=== PATIENT | female | born 1985 | race Caucasian/White ===

== ENCOUNTER 2021-01-16 15:48 | Outpatient (REF) | payer OTHER, SELFPAY ==
[2021-01-16 16:02] LABS: HCT 43.6 % (36.0-46.0); HGB 14.4 g/dL (11.2-15.7); MCH 28.7 pg (27.0-33.0); MCV 86.9 fL (80-95); MPV 10.4 fL (8.0-11.0); Platelet Count 384 10^3/uL (130-400); RBC 5.02 10^6/uL (3.93-5.22); RDW 12.1 % (11.7-14.6); RDW-SD 38.5 fL; WBC 14.75 10^3/uL (4.4-10.8)
[2021-01-16 23:45] LABS: BUN 12 mg/dL (7-18); CREATININE 0.8 mg/dL (0.55-1.02); Calcium 9.4 mg/dL (8.5-10.1); Calculated LDL 99 mg/dL (<100); Cholesterol 190 mg/dL (<200); Glucose 200 mg/dL (74-106); HDL Cholesterol 34 mg/dL (40-60); Total Protein 7.5 g/dL (6.4-8.2); Triglyceride 285 mg/dL (<150)
[2021-01-16 23:46] LABS: Albumin 4.3 g/dL (3.4-5.0); Alkaline Phosphatase 72 U/L (46-116); Anion Gap 14.7 mmol/L (3-11); Bilirubin, Total 0.4 mg/dL (0.2-1.0); CO2 24.3 mmol/L (21.0-32.0); Chloride 102 mmol/L (98-107); Sodium 141 mmol/L (136-145)
[2021-01-16 23:47] LABS: ALT 69 U/L (14-59); AST 41 U/L (15-37); TSH (W/Ref FT4) 1.66 uIU/mL (0.36-3.74)
== END 2021-01-16 15:49 | disposition home or self-care (01) ==
LOC: LBN 15:48
PROVIDERS: PCP Student in an Organized Health Care Education/Training Program; Visit Provider Student in an Organized Health Care Education/Training Program
DX: E11.9 Type 2 diabetes mellitus without complications (principal); I10 Essential (primary) hypertension; R53.83 Other fatigue; N92.0 Excessive and frequent menstruation with regular cycle; Z13.220 Encounter for screening for lipoid disorders; Z86.39 Personal history of other endocrine, nutritional and metabolic disease; Z80.8 Family history of malignant neoplasm of other organs or systems
CPT/HCPCS: 80053; 80061; 85027; 84443

== ENCOUNTER 2021-02-12 11:28 | Outpatient (REF) | payer OTHER, SELFPAY ==
[2021-02-12 11:36] LABS: Source Nasal/Nares
[2021-02-12 12:21] LABS: COVID-19 PCR Negative (Negative)
== END 2021-02-12 11:29 | disposition home or self-care (01) ==
LOC: LBN 11:28
PROVIDERS: PCP Student in an Organized Health Care Education/Training Program; Visit Provider Family Medicine
DX: Z11.52 Encounter for screening for COVID-19 (principal)
CPT/HCPCS: 87635

== ENCOUNTER 2021-02-22 12:17 | Outpatient (REF) | payer OTHER, SELFPAY ==
--- NOTE | 2021-02-22 11:30 | PAPFT_PTH ---
PATIENT: Isamar Peña LOC: [facility] U#:[id number] AGE/SX: 35/F ROOM: RE02/22/[address]: Radha Trevino DO : 1985 BED: DIS: 02/22/2021 SPEC #: [id number] RECD: 02/22/21 18:24 STATUS: EVERETTRoxanne RERonda #: [id number] LINDSEY: 02/22/21 11:[address]: Radha Trevino DEPT: [facility] Cytology RECD BY: Deyanira Sierra ENTERED: 02/22/21 18:25 SP TYPE: PAPFT OTHR DR: Amaya Turcios DO Tissues: 1 - CX/ENDOCX FOR PAP SMEARS Procedures: PAP THIN PREP/[facility] Screening HPV DNA PROBE Comments: [id number]
== END 2021-02-22 12:18 | disposition home or self-care (01) ==
LOC: LBN 12:17
PROVIDERS: PCP Student in an Organized Health Care Education/Training Program; Visit Provider Obstetrics & Gynecology
DX: Z12.4 Encounter for screening for malignant neoplasm of cervix (principal); Z11.51 Encounter for screening for human papillomavirus (HPV)
CPT/HCPCS: 88142; 87624

== ENCOUNTER 2021-02-28 03:06 | Outpatient (CLI) | payer OTHER, SELFPAY ==
[2021-03-05 16:49] LABS: 17-Hydroxyprogesterone <40 ng/dL
== END 2021-02-28 03:07 | disposition home or self-care (01) ==
LOC: LBO 03:06
PROVIDERS: PCP Student in an Organized Health Care Education/Training Program; Visit Provider Obstetrics & Gynecology
DX: E88.81 Metabolic syndrome and other insulin resistance (principal)
CPT/HCPCS: 36415; 83498

== ENCOUNTER → 2021-10-09 02:03 | Outpatient (CLI) | payer OTHER, SELFPAY ==
--- NOTE | 2021-10-09 07:30 | DI.RAD_ITS ---
Exam(s) XR SHOULDER RT COMPLETE 2+V EXAM: XR SHOULDER RT COMPLETE 2+V CLINICAL HISTORY: evaluate spacing, r/o bony path,RT SHOULDER PAIN, M25.511. TECHNIQUE: 2D digital imaging was performed of the right shoulder. Five images were obtained. AP, Grashey, Y-view and axillary views were obtained. COMPARISON: No exams were available for comparison FINDINGS: BONES: No acute fracture is present. No bony destructive lesion is seen. JOINTS: No dislocation present. SOFT TISSUE: Normal. IMPRESSION: Unremarkable radiographs of the right shoulder. DATA REPOSITORY: RADIATION DOSE DELIVERED:
== END ==
PROVIDERS: PCP Student in an Organized Health Care Education/Training Program; Visit Provider Student in an Organized Health Care Education/Training Program
DX: M25.511 Pain in right shoulder (principal)
CPT/HCPCS: 73030

== ENCOUNTER 2021-10-30 03:35 | Outpatient (CLI) | payer OTHER, SELFPAY ==
[2021-10-30 12:49] LABS: Abs Immature Grans 0.06 10^3/uL (0.0-0.06); Absolute Eosinophil Count 0.16 10^3/uL (0.0-0.7); Basophils % 0.3; Eosinophils % 1.1; HCT 42.1 % (36.0-46.0); HGB 13.8 g/dL (11.2-15.7); Immature Grans % 0.4; Lymphocytes % 34.2; MCH 28.5 pg (27.0-33.0); MCHC 32.8 % (32.0-36.0); MCV 87 fL (80-95); MPV 9.7 fL (8.0-11.0); Monocytes % 5.7; Neutrophils % 58.3; Platelet Count 401 10^3/uL (130-400); RBC 4.85 10^6/uL (3.93-5.22); RDW 12.5 % (11.7-14.6); RDW-SD 39.7 fL; WBC 14.46 10^3/uL (4.4-10.8)
[2021-10-30 12:51] LABS: Absolute Basophil Count 0.04 10^3/uL (0.0-0.2); Absolute Lymphocyte Count 4.95 10^3/uL (1.2-3.4); Absolute Monocyte Count 0.82 10^3/uL (0.1-0.8); Absolute Neutrophil Count 8.43 10^3/uL (1.2-6.7)
[2021-10-30 13:05] LABS: Hemoglobin A1C 7.6 % (<5.7)
== END 2021-10-30 03:36 | disposition home or self-care (01) ==
LOC: LBO 03:35
PROVIDERS: PCP Student in an Organized Health Care Education/Training Program; Visit Provider Student in an Organized Health Care Education/Training Program
DX: D72.829 Elevated white blood cell count, unspecified (principal); N92.0 Excessive and frequent menstruation with regular cycle; R73.09 Other abnormal glucose
CPT/HCPCS: 36415; 83036; 85025

== ENCOUNTER 2022-01-22 03:28 | Outpatient (CLI) | payer OTHER, SELFPAY ==
[2022-01-22 12:26] LABS: Abs Immature Grans 0.05 10^3/uL (0.0-0.06); Absolute Basophil Count 0.04 10^3/uL (0.0-0.2); Absolute Lymphocyte Count 4.04 10^3/uL (1.2-3.4); Basophils % 0.3; Eosinophils % 0.8; HCT 42.9 % (36.0-46.0); HGB 14.1 g/dL (11.2-15.7); Immature Grans % 0.4; Lymphocytes % 28.4; MCH 28.7 pg (27.0-33.0); MCHC 32.9 % (32.0-36.0); MCV 87 fL (80-95); MPV 9.9 fL (8.0-11.0); Monocytes % 5.6; Neutrophils % 64.5; Platelet Count 458 10^3/uL (130-400); RBC 4.92 10^6/uL (3.93-5.22); RDW 12.1 % (11.7-14.6); RDW-SD 38.9 fL; WBC 14.21 10^3/uL (4.4-10.8)
[2022-01-22 12:37] LABS: Absolute Eosinophil Count 0.11 10^3/uL (0.0-0.7); Absolute Neutrophil Count 9.17 10^3/uL (1.2-6.7)
[2022-01-22 12:47] LABS: ALT 59 U/L (14-59); AST 24 U/L (15-37); Albumin 4.3 g/dL (3.4-5.0); Alkaline Phosphatase 60 U/L (46-116); Anion Gap 7.8 mmol/L (3-11); BUN 9 mg/dL (7-18); Bilirubin, Total 0.3 mg/dL (0.2-1.0); CO2 27.2 mmol/L (21.0-32.0); CREATININE 0.8 mg/dL (0.55-1.02); Calcium 9.4 mg/dL (8.5-10.1); Calculated LDL 114 mg/dL (<100); Chloride 101 mmol/L (98-107); Cholesterol 177 mg/dL (<200); Estimated GFR 97.87 (mL/min/1.73m2); Glucose 103 mg/dL (74-106); HDL Cholesterol 34 mg/dL (40-60); Potassium 4.3 mmol/L (3.5-5.1); Sodium 136 mmol/L (136-145); TSH (W/Ref FT4) 1.42 uIU/mL (0.36-3.74); Total Protein 7.9 g/dL (6.4-8.2); Triglyceride 149 mg/dL (<150)
[2022-01-22 14:33] LABS: Hemoglobin A1C 6.4 % (<5.7)
== END 2022-01-22 03:29 | disposition home or self-care (01) ==
LOC: LBO 03:28
PROVIDERS: PCP Student in an Organized Health Care Education/Training Program; Visit Provider Student in an Organized Health Care Education/Training Program
DX: I10 Essential (primary) hypertension (principal); E11.9 Type 2 diabetes mellitus without complications; D72.819 Decreased white blood cell count, unspecified; D75.839 Thrombocytosis, unspecified; E87.29 Other acidosis; Z86.39 Personal history of other endocrine, nutritional and metabolic disease
CPT/HCPCS: 36415; 80053; 80061; 83036; 84443; 85025

== ENCOUNTER 2022-05-14 03:40 | Outpatient (CLI) | payer OTHER, SELFPAY ==
[2022-05-14 12:40] LABS: Hemoglobin A1C 6.4 % (<5.7)
[2022-05-14 13:27] LABS: COMMENT (LAB VIEW ONLY) 143.65 mg/dL; Microalb ug/mg Crea 5.7 ug/mg Cr
== END 2022-05-14 03:41 | disposition home or self-care (01) ==
LOC: LBO 03:40
PROVIDERS: PCP Student in an Organized Health Care Education/Training Program; Visit Provider Student in an Organized Health Care Education/Training Program
DX: E11.9 Type 2 diabetes mellitus without complications (principal); E88.81 Metabolic syndrome and other insulin resistance
CPT/HCPCS: 36415; 82043; 82570; 83036

== ENCOUNTER 2022-05-28 01:20 | Outpatient (CLI) | payer OTHER, SELFPAY ==
--- NOTE | 2022-05-28 06:30 | DI.MRI_ITS ---
Exam(s) MR UPPER JOINT RT WO EXAM: MR UPPER JOINT RT WO CLINICAL HISTORY: persistent pain,tendonitis biceps brachi rt shoulder, m75.21. TECHNIQUE: Multiplanar multisequence MRI was performed. COMPARISON: CR XR SHOULDER RT COMPLETE 2+V from 10/09/2021 FINDINGS: BONES: There is no fracture or contusion pattern. There is mild marrow edema seen in the greater tube rosity adjacent to the bicipital groove. JOINTS: The acromioclavicular joint is normal. The glenohumeral joint is normal. TENDONS: Supraspinatus: Unremarkable. Infraspinatus: Unremarkable. Subscapularis: There is tendinosis of the subscapularis tendon. There is a focus of hyperintense sig nal seen in the subscapularis tendon (series 3001, image 14). This may represent a small partial tea r. Teres Minor: Unremarkable. Biceps and Lynn: Unremarkable. MUSCLES: Unremarkable. GLENOID LABRUM: Unremarkable on this noncontrast examination. SOFT TISSUES: Unremarkable. LIGAMENTS: Unremarkable. OTHER: Subacromial and subdeltoid bursae are unremarkable. IMPRESSION: 1. Subscapularis tendinosis. There is a small focus of hyperintense signal seen in the subscapularis tendon as described above. This may represent a small partial tear. 2. Otherwise no evidence of a tendon or ligament tear. DATA REPOSITORY:
== END 2022-05-28 01:40 ==
LOC: DI 01:20
PROVIDERS: PCP Student in an Organized Health Care Education/Training Program; Visit Provider Student in an Organized Health Care Education/Training Program
DX: M75.21 Bicipital tendinitis, right shoulder (principal); M25.511 Pain in right shoulder; M75.81 Other shoulder lesions, right shoulder
CPT/HCPCS: 73221

== ENCOUNTER 2022-09-09 13:14 | Outpatient (CLI) | payer OTHER, SELFPAY ==
[2022-09-09 15:50] LABS: HCG Quant, Pregnancy 3 mIU/mL (1-3)
== END 2022-09-09 13:15 | disposition home or self-care (01) ==
LOC: LBO 13:15
PROVIDERS: PCP Student in an Organized Health Care Education/Training Program; Visit Provider Obstetrics & Gynecology
DX: Z32.01 Encounter for pregnancy test, result positive (principal)
CPT/HCPCS: 36415; 84702

== ENCOUNTER 2022-10-13 18:19 | Emergency (ER) | payer OTHER, SELFPAY ==
[2022-10-13 18:28] VITALS: BP 135/82; PULSE 90; RESP 16; TEMP 37.2; O2SAT 99
--- NOTE | 2022-10-13 20:15 | DI.RAD_ITS ---
Exam(s) XR FINGER LT INDEX EXAM: XR FINGER LT INDEX CLINICAL HISTORY: Left index finger pain cat scratch. TECHNIQUE: 2D digital imaging was performed. Three views. COMPARISON: None. FINDINGS: BONES: No acute fracture is present. No bony destructive lesion is seen. JOINTS: No dislocation present. SOFT TISSUE: Swelling. No foreign body or abnormal gas collection. IMPRESSION: No evidence of acute fracture, dislocation, or subluxation. Soft tissue swelling. DATA REPOSITORY: RADIATION DOSE DELIVERED:
--- NOTE | 2022-10-13 20:18 | ED.GENADUL_ITS ---
Discharge Plan Disposition Patient Disposition: Home Discharge Details Clinical Impression: Cat scratch of left hand with infection, Immunization, tetanus-diphtheria Primary Care Provider: Amaya Turcios ED Provider: Johnnie Thomson Home Meds and New Rx's Prescriptions: New amoxicillin-pot clavulanate 875-125 mg tablet 1 tab PO BID 5 Days Qty: 10 0RF Continued Classic 28 mg iron- 800 mcg tablet 1 tab PO DAILY Qty: 90 3RF (DME) blood-glucose meter [OneTouch Verio Meter] Misc See Rx Instructions .ROUTE .MEDSUPPLY Qty: 1 0RF Rx Instructions: QD monitoring; to achieve A1C under 6.5% naproxen sodium [Aleve] 220 mg capsule 220 mg PO BID PRN multivitamin Tablet 1 tab PO DAILY (DME) OneTouch Verio test strips Strip See Rx Instructions .ROUTE .MEDSUPPLY Qty: 100 3RF Rx Instructions: QD monitoring, to achieve A1C under 6.5% (DME) lancets [OneTouch Delica Plus Lancet] 33 gauge misc See Rx Instructions .ROUTE .MEDSUPPLY Qty: 100 3RF Rx Instructions: QD monitoring; to achieve A1C under 6.5% metformin 500 mg tablet extended release 24hr 1,000 mg PO BID Qty: 360 3RF Rx Instructions: Increase dose slowly to minimize GI symptoms. Discharge Instructions Additional Instructions: Please read all of the information that accompanies these instructions. You were seen in the emergency department for your cat scratch which showed signs of infection. You are receiving an antibiotic that you should take as directed. Please schedule an appointment with your primary care provider next week as needed. Please return to the emergency department if streaking signs of infection worsening pain or any fevers or chills. Your tetanus was updated. For your pain please take medications as follows: 1. Take acetaminophen (Tylenol), 1,000 mg (two 500 mg tabs) every 6 hours 2. Take ibuprofen (Advil), 400 mg every 6 hours. Medical Decision Making This is a very well appearing normothermic and not tachycardic vufur-lbav-ftjuazbj female with left index finger puncture wounds from cat claws concerning for possibility of infection given erythema and increased pain for which patient will receive treatment with 5 days of amoxicillin clavulanic acid. Given scratch from domestic cat no indication for rabies prophylaxis. We will update tetanus. Patient does have some local swelling over her proximal phalange of her left index finger but does not have pain with passive extension nor pain with percussion along flexor tendon sheath nor fusiform swelling nor is her finger held in flexion posture. Given negative Kanavel's sign my suspicion for flexor tenosynovitis is exceedingly low. Will obtain plain films to ensure that there is not any retained claws. Patient is not septic based on vital signs and appearance so I did not order blood cultures lactate nor treat empirically with IV antibiotics. Patient works in the hospital and I advised ED follow-up and PCP follow-up as needed for worsening swelling pain or any systemic symptoms of fevers and chills. Patient understood her return indications and we will proceed with an empiric trial of expectant outpatient management. 11:55 PM Plain films negative for any retained foreign bodies and fractures. HPI General Date/Time Provider Initiated Documentation: 10/13/22 19:19 . HPI Narrative: This is a rlhxr-pzia-koxylwxy 37-year-old female with left index finger pain and swelling 1 day status post incidents in which she broke up a cat fight and was scratched by a cat. 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 She noted some swelling initially yesterday but her swelling worsened today. She reported that her tetanus was updated approximately 5 years ago. She denies any fevers chills nausea vomiting. No other injuries. Related Data Home Medications Medication Instructions Recorded Confirmed multivitamin 1 tab PO DAILY 12/19/20 10/13/22 blood-glucose meter (OneTouch #1 ea 01/05/21 10/13/22 Verio Meter) blood sugar diagnostic (OneTouch #100 ea 08/08/21 10/13/22 Verio test strips) lancets 33 gauge (OneTouch Delica #100 ea 08/08/21 10/13/22 Plus Lancet) naproxen sodium 220 mg capsule 220 mg PO BID PRN 11/07/21 10/13/22 (Aleve) metformin 500 mg tablet,extended 1,000 mg PO BID #360 tabs 03/13/22 10/13/22 release 24hr vits no.126-ferrous fum 1 tab PO DAILY #90 tabs 06/04/22 10/13/22 28 mg iron-folic acid 800 mcg tablet (Classic ) amoxicillin 875 mg-potassium 1 tab PO BID 5 days #10 tabs 10/13/22 clavulanate 125 mg tablet Previous Rx's Medication Instructions Recorded blood-glucose meter (OneTouch #1 ea 01/05/21 Verio Meter) blood sugar diagnostic (OneTouch #100 ea 08/08/21 Verio test strips) lancets 33 gauge (OneTouch Delica #100 ea 08/08/21 Plus Lancet) metformin 500 mg tablet,extended 1,000 mg PO BID #360 tabs 03/13/22 release 24hr vits no.126-ferrous fum 1 tab PO DAILY #90 tabs 06/04/22 28 mg iron-folic acid 800 mcg tablet (Classic ) amoxicillin 875 mg-potassium 1 tab PO BID 5 days #10 tabs 10/13/22 clavulanate 125 mg tablet Allergies Allergy/AdvReac Type Severity Reaction Status Date / Time No Known Allergies Allergy Verified 10/13/22 19:38 General Stated Complaint: Cellulitis MARIA DEL CARMEN: 3 PFSH All Active Problems (Updated 10/13/22 @ 20:33 by Johnnie Thomson MD) Cat scratch of left hand with infection (Acute) Immunization, tetanus-diphtheria (Acute) Positive test (Acute) Patient desires (Acute) Encounter for IUD removal (Acute) Rotator cuff tear, right (Acute) Encounter for preconception consultation (Acute) Stop ACEi .. Time-out [ ] PLan to stop Ozempic: reviewing tarato/timeline. Reviewed Hx BP, BG .. Supraspinatus tendonitis (Acute) Pain in right acromioclavicular joint (Acute) Impingement syndrome of right shoulder (Acute) Tendonitis of long head of biceps brachii of right shoulder (Acute) IUD (intrauterine device) in place (Acute) Removal May 2022 Hypertension (Chronic) Improving with exercise/wt loss .. expect d/c ACEi for BP WNL (OR when IUD removed) Well woman exam with routine gynecological exam (Acute) Weight loss, intentional (Acute) Diabetes mellitus (Chronic) Improved, A1C 6.4, 01/2022. Fam Hx DM. A1C 9.9. Metabolic syndrome (Acute) Medical History Abnormal Pap smear of vagina and vaginal HPV (~2015) COVID-19 (~12/2021) Family history of thyroid cancer Gparent HPV (human papilloma virus) infection (~2015) Hx of Terminated, mifepristone and misoprostol. Hx of thyroid disease Hx hypothyroid, tolerated Rx. TSH normalized and Rx D/C'd (approx 2 years). Left leg injury left calf Menorrhagia Hx heavy menses, anemia. Improved w/ IUD. Surgical History History of colposcopy (~2015) benign History of wisdom tooth extraction (~2001) Family History Maternal Grandmother Diabetes Hypertension Hepatocellular carcinoma Maternal Grandfather Hypertension Alcohol use disorder Anaplastic thyroid carcinoma Liposarcoma of chest wall Father Hypertension Hyperlipidemia Social History Smoking/Tobacco Use Status: Never Smoking risk assessment performed?: Yes Alcohol Intake: current Alcohol Intake frequency: a few times a month Drug use: Never Substance use type: does not use Adopted: No Caregiver/Support person: No Foster care: No Household members: significant other and children Housing: house Number of Children: 1 Communication Needs: None Education Level: other Details: MD Do you need help understanding health information?: Never current occupation: Director [employer] Pets and animals: Yes (1,1) Pets and animals: cat(s) and other Details: rabbit Sexually active: Yes Do you think of yourself as: straight/heterosexual Current gender identity: female What is your relationship status?: living with partner How often do you talk on the phone with friends or family?: three or more times per week How often do you get together with friends or relatives?: once per week Do you belong to any clubs or organized social groups?: yes Panel score (0-1 are the most socially isolated patients): 3 What type of physical activity do you participate in: walking and other Details: hiking, [place] Duration: 15-30 minutes/day Frequency: 3-4 times per week Juana/Restorationist: None Special juana needs: No Seatbelt use: always Helmet use: Yes Helmet use: always Drive intox or ride w/intox local combination truck driver: No Do you feel safe at home: Yes Do you feel safe in your relationship?: Yes Exam Narrative Exam Narrative: General: Well-appearing in no acute distress speaking in complete sentences. Head: Normocephalic, atraumatic. Eye: Extraocular eye movements intact. No conjunctival injection. No scleral icterus. Ear, nose, mouth, throat: Grossly normal inspection. Normal voice, handling secretions normally. Neck: Trachea midline. Cardiovascular: Well-perfused distal extremities. Respiratory: Nonlabored respiration. Gastrointestinal: Nondistended abdomen. Musculoskeletal: There is swelling in the left index finger. There are also 2 wounds of the left index finger. On the palmar aspect of the left index finger between the MCP and PIP joints there is a small puncture wound with mild surrounding erythema on the radial aspect of the left index finger. On the dorsal aspect of the left index finger between the MCP and PIP joints there is a larger healing laceration approximately 1.5 cm in length. Patient does have mild swelling between the MCP and PIP joints of her left index finger. No fusiform swelling. No pain with passive extension. No pain with percussion along flexor tendon sheath and fingers not held in flexion posture. Sensation motor function intact in the left finger. Left finger warm well perfused with less than 2-second capillary refill. 2+ left radial pulse. Skin: Normal for age and race, grossly normal temperature and turgor. No acute rash. Neurologic: Alert and appropriate, no apparent acute deficits. Psychiatric: Mood and manner are appropriate. Grooming and personal hygiene are appropriate. Course Vital Signs Vital signs: Vital Signs Temperature 37.2 C 10/13/22 18:28 Pulse 90 10/13/22 18:28 Respiratory Rate 16 10/13/22 18:28 Blood Pressure 135/82 10/13/22 18:28 Pulse Oximetry 99 10/13/22 18:28 Temperature 37.2 C 10/13/22 18:28 Temperature Source Tympanic 10/13/22 18:28 Pulse 90 10/13/22 18:28 Respiratory Rate 16 10/13/22 18:28 Respiratory Effort Normal, Non-Labored 10/13/22 19:39 Blood Pressure 135/82 10/13/22 18:28 Pulse Oximetry 99 10/13/22 18:28 Oxygen Delivery Method Room Air 10/13/22 18:28 Oxygen Flow Rate 0 10/13/22 18:28
[2022-10-13] MEDS: Amoxicillin 875/Clav. 125 TAB PO (20:42)
[2022-10-13 20:59] VITALS: BP 130/80; PULSE 80; RESP 16; O2SAT 99
--- NOTE | 2022-10-13 21:01 | DI.VRAD_ITS ---
PROCEDURE INFORMATION: Exam: XR Left Finger(s) Exam date and time: 10/13/2022 8:44 PM Age: 37 years old Clinical indication: Other: Left index finger pain cat scratch TECHNIQUE: Imaging protocol: Radiologic exam of the left fingers. Views: Minimum 2 views. COMPARISON: No relevant prior studies available. FINDINGS: Bones/joints: Normal. Soft tissues: There is soft tissue swelling of the proximal aspect of the left 2nd digit. No radiopaque foreign body is identified.. IMPRESSION: Soft tissue swelling left 2nd digit proximally. Dictated and Authenticated by: Daphne Tate MD. Ordering:ZAC Blair MD
== END 2022-10-13 20:56 | disposition home or self-care (01) ==
PROVIDERS: Emergency Provider Emergency Medicine; PCP Student in an Organized Health Care Education/Training Program
DX: S60.512A Abrasion of left hand, initial encounter (principal); W55.03XA Scratched by cat, initial encounter; L08.9 Local infection of the skin and subcutaneous tissue, unspecified
CPT/HCPCS: 90471; 99284; 73140

== ENCOUNTER 2023-01-10 13:59 | Outpatient (CLI) | payer OTHER, SELFPAY ==
[2023-01-10 13:00] LABS: HCG Quant, Pregnancy 80 mIU/mL (1-3)
== END 2023-01-10 14:00 | disposition home or self-care (01) ==
LOC: LBO 14:00
PROVIDERS: PCP Student in an Organized Health Care Education/Training Program; Visit Provider Obstetrics & Gynecology
DX: Z32.01 Encounter for pregnancy test, result positive (principal)
CPT/HCPCS: 36415; 84702

== ENCOUNTER 2023-01-16 02:30 | Outpatient (CLI) | payer OTHER, SELFPAY ==
[2023-01-16 12:17] LABS: HCG Quant, Pregnancy 580 mIU/mL (1-3)
== END 2023-01-16 02:31 | disposition home or self-care (01) ==
LOC: LBO 02:30
PROVIDERS: Obstetrics & Gynecology; PCP Student in an Organized Health Care Education/Training Program; Visit Provider Student in an Organized Health Care Education/Training Program
DX: Z32.01 Encounter for pregnancy test, result positive (principal)
CPT/HCPCS: 36415; 84702

== ENCOUNTER 2023-01-20 03:53 | Outpatient (CLI) | payer OTHER, SELFPAY ==
[2023-01-20 12:50] LABS: Calculated LDL 84 mg/dL (<100); Cholesterol 147 mg/dL (<200); HDL Cholesterol 39 mg/dL (40-60); TSH (W/Ref FT4) 2.12 uIU/mL (0.36-3.74); Triglyceride 123 mg/dL (<150)
[2023-01-20 12:54] LABS: Folate > 20.0 ng/mL (8.6-20.0); HCG Quant, Pregnancy 2306 mIU/mL (1-3)
[2023-01-20 12:55] LABS: Anion Gap 11.2 mmol/L (3-11); BUN 11 mg/dL (7-18); CO2 24.8 mmol/L (21.0-32.0); CREATININE 0.7 mg/dL (0.55-1.02); Calcium 9.3 mg/dL (8.5-10.1); Chloride 101 mmol/L (98-107); Estimated GFR 114.16 (mL/min/1.73m2); Glucose 146 mg/dL (74-106); Magnesium 1.5 mg/dL (1.8-2.4); Potassium 3.8 mmol/L (3.5-5.1); Sodium 137 mmol/L (136-145); Vitamin B12 446 pg/mL (193-986)
[2023-01-20 13:03] LABS: Hemoglobin A1C 7.6 % (<5.7)
== END 2023-01-20 03:54 | disposition home or self-care (01) ==
PROVIDERS: Obstetrics & Gynecology; PCP Student in an Organized Health Care Education/Training Program; Visit Provider Student in an Organized Health Care Education/Training Program
DX: Z32.01 Encounter for pregnancy test, result positive (principal); E11.9 Type 2 diabetes mellitus without complications; I10 Essential (primary) hypertension; Z80.8 Family history of malignant neoplasm of other organs or systems; Z86.39 Personal history of other endocrine, nutritional and metabolic disease; Z13.220 Encounter for screening for lipoid disorders
CPT/HCPCS: 36415; 80048; 80061; 82607; 82746; 83036; 83735; 84443; 84702

== ENCOUNTER 2023-01-23 11:54 | Outpatient (CLI) | payer OTHER, SELFPAY ==
--- NOTE | 2023-01-23 11:45 | RT.EKG_ITS ---
APPROVED REPORT Exam: Resting ECG Reason for Exam: new baseline 2' Hx HTN, Tachy Patient Location: O HR:86 bpm ECG Measurements Heart Rate 86 AXIS MT 128 P 44 QRSd 102 QRS 43 QT 397 T 10 QTc 475 Conclusion Sinus rhythm...normal P axis, V-rate 50- 99 Baseline wander in lead(s) V5,V6 Normal Electrocardiogram
== END 2023-01-23 11:55 | disposition home or self-care (01) ==
PROVIDERS: PCP Student in an Organized Health Care Education/Training Program; Visit Provider Student in an Organized Health Care Education/Training Program
DX: E11.9 Type 2 diabetes mellitus without complications (principal); I10 Essential (primary) hypertension; Z86.79 Personal history of other diseases of the circulatory system
CPT/HCPCS: 93005; 93010

== ENCOUNTER 2023-03-14 01:52 | Outpatient (CLI) | payer OTHER, SELFPAY ==
[2023-03-14 11:40] LABS: Panorama Kit Sent via Fed Ex
[2023-03-14 11:47] LABS: Abs Immature Grans 0.07 10^3/uL (0.0-0.06); Absolute Basophil Count 0.03 10^3/uL (0.0-0.2); Absolute Eosinophil Count 0.18 10^3/uL (0.0-0.7); Absolute Lymphocyte Count 2.97 10^3/uL (1.2-3.4); Absolute Monocyte Count 0.89 10^3/uL (0.1-0.8); Basophils % 0.2; Eosinophils % 1.3; HCT 40.1 % (36.0-46.0); HGB 13.5 g/dL (11.2-15.7); Immature Grans % 0.5; Lymphocytes % 21.9; MCH 28.8 pg (27.0-33.0); MCHC 33.7 % (32.0-36.0); MCV 86 fL (80-95); MPV 9.6 fL (8.0-11.0); Monocytes % 6.6; Neutrophils % 69.5; Platelet Count 356 10^3/uL (130-400); RBC 4.68 10^6/uL (3.93-5.22); RDW 12.6 % (11.7-14.6); RDW-SD 39.2 fL; WBC 13.55 10^3/uL (4.4-10.8)
[2023-03-14 11:48] LABS: Absolute Neutrophil Count 9.42 10^3/uL (1.2-6.7)
[2023-03-14 12:31] LABS: ALT 22 U/L (14-59); AST 19 U/L (15-37); Albumin 3.6 g/dL (3.4-5.0); Alkaline Phosphatase 51 U/L (46-116); Anion Gap 11.3 mmol/L (3-11); BUN 9 mg/dL (7-18); Bilirubin, Total 0.3 mg/dL (0.2-1.0); CO2 23.7 mmol/L (21.0-32.0); CREATININE 0.6 mg/dL (0.55-1.02); Calcium 9.7 mg/dL (8.5-10.1); Chloride 102 mmol/L (98-107); Estimated GFR 118.49 (mL/min/1.73m2); Glucose 120 mg/dL (74-106); Sodium 137 mmol/L (136-145); Total Protein 7.6 g/dL (6.4-8.2)
[2023-03-14 16:14] LABS: *AMPHETAMINES SCREEN URINE Negative (Negative); *BARBITURATES SCREEN URINE Negative (Negative); *BENZODIAZEPINES SCREEN URINE Negative (Negative); Cannabinoids THC Negative (Negative); Cocaine Screen,Urine Negative (Negative); METHADONE URINE SCREEN Negative (Negative); OPIATES URINE SCREEN Negative (Negative)
[2023-03-14 16:16] LABS: Tricyclic Antidepressants Negative (Negative)
[2023-03-16 03:13] LABS: Chlamydia Result Negative (Negative); GC Result Negative (Negative)
[2023-03-17 09:35] LABS: Hepatitis B Surface Ag Negative (Negative)
[2023-03-17 09:55] LABS: HIV-1/2 Ag & Ab Screen Negative (Negative)
[2023-03-17 10:09] LABS: Hepatitis C Ab w Rflx HCV PCR Negative (Negative)
[2023-03-17 12:28] LABS: Varicella IgG Antibody Negative (See Note)
[2023-03-17 12:34] LABS: Rubella IgG Ab (UVM) Positive (See Note)
[2023-03-18 22:10] LABS: Syphilis IgG w/Reflex Nonreactive (Nonreactive)
[2023-03-22 20:57] LABS: Specimen WB Whole Blood
[2023-03-28 12:03] LABS: Result Summary NEGATIVE; Specimen WB Whole Blood
== END 2023-03-14 01:53 | disposition home or self-care (01) ==
LOC: LBO 01:52 → LBN 13:40
PROVIDERS: Obstetrics & Gynecology; PCP Student in an Organized Health Care Education/Training Program; Visit Provider Advanced Practice Midwife
DX: Z34.91 Encounter for supervision of normal pregnancy, unspecified, first trimester (principal); O09.91 Supervision of high risk pregnancy, unspecified, first trimester; E11.9 Type 2 diabetes mellitus without complications
CPT/HCPCS: 36415; 80053; 80307; 81220; 81222; 81329; 86787; 86803; 86850; 86900; 86901; 87340; 87389; 87491; 87591; 84443; 85025; 86762; 86780; 87086

== ENCOUNTER 2023-03-19 08:40 | Outpatient (REF) | payer OTHER, SELFPAY ==
[2023-03-22 09:28] LABS: Creatinine,Urine 189.88 mg/dL
[2023-03-22 10:10] LABS: Creatinine,24hr Ur 1.71 g/24hr (0.60-1.80); PROTEIN < 6.0 mg/dL (0.0-11.9); Total Volume 930 ml
== END 2023-03-19 08:41 | disposition home or self-care (01) ==
LOC: LBN 08:40
PROVIDERS: PCP Student in an Organized Health Care Education/Training Program; Visit Provider Obstetrics & Gynecology
DX: O09.91 Supervision of high risk pregnancy, unspecified, first trimester (principal); O09.521 Supervision of elderly multigravida, first trimester; O24.311 Unspecified pre-existing diabetes mellitus in pregnancy, first trimester; Z3A.13 13 weeks gestation of pregnancy
CPT/HCPCS: 82570; 84155

== ENCOUNTER 2023-06-30 13:09 | Outpatient (CLI) | payer OTHER, SELFPAY ==
[2023-06-30 13:56] LABS: HCT 34.6 % (36.0-46.0); HGB 11.4 g/dL (11.2-15.7); MCH 28.3 pg (27.0-33.0); MCHC 32.9 % (32.0-36.0); MCV 86 fL (80-95); MPV 10.1 fL (8.0-11.0); Platelet Count 365 10^3/uL (130-400); RBC 4.03 10^6/uL (3.93-5.22); RDW 13.2 % (11.7-14.6); RDW-SD 40.5 fL; WBC 13.78 10^3/uL (4.4-10.8)
== END 2023-06-30 13:10 | disposition home or self-care (01) ==
LOC: LBO 13:09
PROVIDERS: PCP Student in an Organized Health Care Education/Training Program; Visit Provider Obstetrics & Gynecology
DX: O09.93 Supervision of high risk pregnancy, unspecified, third trimester (principal); Z3A.28 28 weeks gestation of pregnancy
CPT/HCPCS: 36415; 85027

== ENCOUNTER 2023-07-31 06:11 | Outpatient (CLI) | payer OTHER, SELFPAY ==
[2023-07-31 07:27] VITALS: BP 115/71; PULSE 79; TEMP 36.4
[2023-07-31 08:00] VITALS: BP 115/71; PULSE 79
--- NOTE | 2023-07-31 08:26 | W.OBNST ---
Date of service: 07/31/23 Time of Service: 08:26 NST Evaluation Reason for NST Reasons for Nonstress Test: ADVANCED MATERNAL AGE Gestational Age Gestational Age in Weeks and Days: 32 Weeks and 3Days Test and Monitor Explained Test/Monitor Explained: Test Explained, Monitor Explained and Patient Verbalized Understanding Vital Signs Blood Pressure: 115/71 Pulse: 79 Temperature: 97.5 F NST Information Date on Monitor: 07/31/23 Time on Monitor: 07:56 Date off Monitor: 07/31/23 Time off Monitor: 08:17 Total Time on Monitor: 21 NST Interventions: None Contraction Frequency: 0 NST Evaluation Patient States Movement: Present FHR Baseline: 150 Variability: Moderate 6-25 bpm Accelerations: 15x15 Decelerations: None NST Results: Reactive Note Ultrasound Done: N/A. NST Note Note: Pt reports excellent glycemic control. 45 units Lanus BID. Lispro prior to high COOH meal as needed. NST reactive. Return on Friday. NST Reviewed and Verified by: Scarlet Rausch
[2023-07-31 08:28] VITALS: BP 115/71; PULSE 79; TEMP 36.4
== END 2023-07-31 08:19 ==
LOC: BCD 06:21 → OBS 07:25
PROVIDERS: PCP Student in an Organized Health Care Education/Training Program; Visit Provider Obstetrics & Gynecology Gynecology
DX: O09.523 Supervision of elderly multigravida, third trimester (principal); Z3A.32 32 weeks gestation of pregnancy
CPT/HCPCS: 59025

== ENCOUNTER 2023-08-04 07:33 | Outpatient (CLI) | payer OTHER, SELFPAY ==
[2023-08-04 08:27] VITALS: BP 124/70; PULSE 78; TEMP 36.6
[2023-08-04 09:17] VITALS: BP 124/70; PULSE 78; TEMP 36.6
--- NOTE | 2023-08-04 09:17 | W.OBNST ---
Date of service: 08/04/23 Time of Service: 09:17 NST Evaluation Reason for NST Reasons for Nonstress Test: GDM-INSULIN and ADVANCED MATERNAL AGE Gestational Age Gestational Age in Weeks and Days: 33 Weeks and 0Days Test and Monitor Explained Test/Monitor Explained: Test Explained, Monitor Explained and Patient Verbalized Understanding Vital Signs Blood Pressure: 124/70 Pulse: 78 Temperature: 97.9 F Urine Results Urine Protein: Negative Urine Ketones: Negative Urine Glucose: Negative Urine Blood: Negative NST Information Date on Monitor: 08/04/23 Time on Monitor: 08:03 Date off Monitor: 08/04/23 Time off Monitor: 08: Total Time on Monitor: 23 NST Interventions: Notify Provider Contraction Frequency: 0 NST Evaluation Patient States Movement: Present FHR Baseline: 150 Variability: Moderate 6-25 bpm Accelerations: 15x15 Decelerations: None NST Results: Reactive Note Ultrasound Done: N/A. NST Note Note: Category 1, reactive nonstress test. Stable blood pressure. Good glycemic control. Continue twice weekly NSTs. NST Reviewed and Verified by: Radha Trevino
== END 2023-08-04 08:33 ==
LOC: BCD 07:34 → OBS 07:59
PROVIDERS: PCP Student in an Organized Health Care Education/Training Program; Visit Provider Obstetrics & Gynecology
DX: O24.414 Gestational diabetes mellitus in pregnancy, insulin controlled (principal); O09.523 Supervision of elderly multigravida, third trimester; Z3A.33 33 weeks gestation of pregnancy
CPT/HCPCS: 59025

== ENCOUNTER 2023-08-07 07:09 | Outpatient (CLI) | payer OTHER, SELFPAY ==
[2023-08-07 08:05] VITALS: BP 130/77; PULSE 83; TEMP 36.7
[2023-08-07 08:23] VITALS: BP 130/77; PULSE 83
[2023-08-07 09:04] VITALS: BP 130/77; PULSE 83; TEMP 36.7
--- NOTE | 2023-08-07 09:04 | W.OBNST ---
Date of service: 08/07/23 Time of Service: 09:04 NST Evaluation Reason for NST Reasons for Nonstress Test: GDM-INSULIN and CHRONIC MATERNAL DM Gestational Age Gestational Age in Weeks and Days: 33 Weeks and 3Days Test and Monitor Explained Test/Monitor Explained: Test Explained Vital Signs Blood Pressure: 130/77 Pulse: 83 Temperature: 98.1 F Urine Results Urine Protein: Negative Urine Ketones: Positive Urine Glucose: Negative Urine Blood: Negative NST Information Date on Monitor: 08/07/23 Time on Monitor: 08:05 Date off Monitor: 08/07/23 Time off Monitor: 08:36 Total Time on Monitor: 31 NST Interventions: PO Hydration NST Evaluation Patient States Movement: Present FHR Baseline: 140 Variability: Moderate 6-25 bpm Accelerations: 15x15 Decelerations: None NST Results: Reactive Note Ultrasound Done: N/A. NST Note Note: Category 1, reactive nonstress test. Recent ultrasound at [facility] with baby around the 50th percentile. Blood pressure stable. Glycemic control is appropriate. Follow-up for twice-weekly surveillance as scheduled NST Reviewed and Verified by: Radha Trevino
== END 2023-08-07 08:41 | disposition home or self-care (01) ==
LOC: BCD 07:11 → OBS 07:16
PROVIDERS: PCP Student in an Organized Health Care Education/Training Program; Visit Provider Obstetrics & Gynecology
DX: O24.414 Gestational diabetes mellitus in pregnancy, insulin controlled (principal); O09.523 Supervision of elderly multigravida, third trimester; Z3A.33 33 weeks gestation of pregnancy
CPT/HCPCS: 59025

== ENCOUNTER 2023-08-11 07:24 | Outpatient (CLI) | payer OTHER, SELFPAY ==
[2023-08-11 07:54] VITALS: BP 135/78; PULSE 85
[2023-08-11 08:55] VITALS: BP 135/78; PULSE 85; TEMP 36.6
[2023-08-11 10:05] VITALS: BP 135/78; PULSE 85; TEMP 36.6
--- NOTE | 2023-08-11 10:05 | W.OBNST ---
Date of service: 08/11/23 Time of Service: 10:05 NST Evaluation Reason for NST Reasons for Nonstress Test: GDM-INSULIN Gestational Age Gestational Age in Weeks and Days: 34 Weeks and 0Days Test and Monitor Explained Test/Monitor Explained: Test Explained, Monitor Explained and Patient Verbalized Understanding Vital Signs Blood Pressure: 135/78 Pulse: 85 Temperature: 97.9 F Urine Results Urine Protein: Negative Urine Ketones: Negative Urine Glucose: Negative Urine Blood: Negative NST Information Date on Monitor: 08/11/23 Time on Monitor: 07:50 Date off Monitor: 08/11/23 Time off Monitor: 08:31 Total Time on Monitor: 41 NST Interventions: Reposition Patient and Notify Provider NST Evaluation Patient States Movement: Present FHR Baseline: 145 Variability: Moderate 6-25 bpm Accelerations: 15x15 Decelerations: None NST Results: Reactive Note Ultrasound Done: N/A. NST Note Note: Category 1, reactive NST. NST Reviewed and Verified by: Radha Trevino
== END 2023-08-11 08:56 ==
LOC: BCD 07:25 → OBS 07:49
PROVIDERS: PCP Student in an Organized Health Care Education/Training Program; Visit Provider Obstetrics & Gynecology
DX: O24.414 Gestational diabetes mellitus in pregnancy, insulin controlled (principal); Z3A.34 34 weeks gestation of pregnancy
CPT/HCPCS: 59025

== ENCOUNTER 2023-08-14 06:56 | Outpatient (CLI) | payer OTHER, SELFPAY ==
[2023-08-14 07:51] VITALS: BP 140/75; PULSE 82; TEMP 36.5
[2023-08-14 07:59] VITALS: BP 140/75; PULSE 82
--- NOTE | 2023-08-14 09:09 | W.OBNST ---
Date of service: 08/14/23 Time of Service: 08:30 NST Evaluation Reason for NST Reasons for Nonstress Test: CHRONIC MATERNAL DM Gestational Age Gestational Age in Weeks and Days: 34 Weeks and 3Days Test and Monitor Explained Test/Monitor Explained: Test Explained and Monitor Explained Vital Signs Blood Pressure: 140/75 Pulse: 82 Temperature: 97.7 F Urine Results Urine Protein: Negative Urine Ketones: Positive Urine Glucose: Negative Urine Blood: Negative NST Information Date on Monitor: 08/14/23 Time on Monitor: 07:56 Date off Monitor: 08/14/23 Time off Monitor: 08:40 Total Time on Monitor: 44 NST Interventions: None and PO Hydration NST Evaluation Patient States Movement: Present FHR Baseline: 145 Variability: Moderate 6-25 bpm Decelerations: None Note Ultrasound Done: N/A. NST Note Note: See record. NST Reviewed and Verified by: Kendra Reeves
[2023-08-14 09:10] VITALS: BP 140/75; PULSE 82; TEMP 36.5
== END 2023-08-14 08:50 | disposition home or self-care (01) ==
LOC: BCD 07:08 → OBS 07:50
PROVIDERS: PCP Student in an Organized Health Care Education/Training Program; Visit Provider Obstetrics & Gynecology
DX: O24.414 Gestational diabetes mellitus in pregnancy, insulin controlled (principal); O09.523 Supervision of elderly multigravida, third trimester; O16.3 Unspecified maternal hypertension, third trimester; Z3A.34 34 weeks gestation of pregnancy
CPT/HCPCS: 59025

== ENCOUNTER 2023-08-18 07:15 | Outpatient (CLI) | payer OTHER, SELFPAY ==
[2023-08-18 07:59] VITALS: BP 127/80; PULSE 81; TEMP 36.7
[2023-08-18 08:16] VITALS: BP 127/80; PULSE 81
--- NOTE | 2023-08-18 17:12 | W.OBNST ---
Date of service: 08/18/23 Time of Service: 08:30 NST Evaluation Reason for NST Reasons for Nonstress Test: CHRONIC MATERNAL DM Gestational Age Gestational Age in Weeks and Days: 35 Weeks and 0Days Test and Monitor Explained Test/Monitor Explained: Test Explained and Monitor Explained Vital Signs Blood Pressure: 127/80 Pulse: 81 Temperature: 98.1 F Urine Results Urine Protein: Negative Urine Ketones: Negative Urine Glucose: Negative Urine Blood: Negative NST Information Date on Monitor: 08/18/23 Time on Monitor: 08:10 Date off Monitor: 08/18/23 Time off Monitor: 08:42 Total Time on Monitor: 32 NST Interventions: None NST Evaluation Patient States Movement: Present FHR Baseline: 150 Variability: Moderate 6-25 bpm Accelerations: 15x15 Decelerations: None NST Results: Reactive Note Ultrasound Done: N/A. NST Note NST Reviewed and Verified by: Kendra Reeves
[2023-08-18 17:14] VITALS: BP 127/80; PULSE 81; TEMP 36.7
== END 2023-08-18 08:45 | disposition home or self-care (01) ==
LOC: BCD 07:15 → OBS 07:57
PROVIDERS: PCP Student in an Organized Health Care Education/Training Program; Visit Provider Obstetrics & Gynecology
DX: O24.414 Gestational diabetes mellitus in pregnancy, insulin controlled (principal); O13.3 Gestational [pregnancy-induced] hypertension without significant proteinuria, third trimester; Z3A.35 35 weeks gestation of pregnancy
CPT/HCPCS: 59025

== ENCOUNTER 2023-08-21 14:34 | Outpatient (CLI) | payer OTHER, SELFPAY ==
[2023-08-21 15:12] VITALS: BP 146/80; PULSE 90
[2023-08-21 15:23] VITALS: BP 156/82; PULSE 80
[2023-08-21 15:33] VITALS: BP 143/75; PULSE 86
[2023-08-21 15:33] LABS: HCT 35.2 % (36.0-46.0); HGB 11.6 g/dL (11.2-15.7); MCH 27.8 pg (27.0-33.0); MCV 84 fL (80-95); MPV 10.5 fL (8.0-11.0); Platelet Count 315 10^3/uL (130-400); RBC 4.17 10^6/uL (3.93-5.22); RDW 13.6 % (11.7-14.6); WBC 11.48 10^3/uL (4.4-10.8)
[2023-08-21 15:42] VITALS: BP 139/69; PULSE 85
[2023-08-21 15:47] LABS: ALT 19 U/L (14-59); AST 17 U/L (15-37); Albumin 2.6 g/dL (3.4-5.0); Alkaline Phosphatase 138 U/L (46-116); Anion Gap 11.9 mmol/L (3-11); BUN 14 mg/dL (7-18); Bilirubin, Total 0.3 mg/dL (0.2-1.0); CO2 21.1 mmol/L (21.0-32.0); CREATININE 0.8 mg/dL (0.55-1.02); Calcium 8.9 mg/dL (8.5-10.1); Chloride 105 mmol/L (98-107); Estimated GFR 96.66 (mL/min/1.73m2); Glucose 109 mg/dL (74-106); Potassium 3.8 mmol/L (3.5-5.1); Sodium 138 mmol/L (136-145); Total Protein 6.2 g/dL (6.4-8.2)
[2023-08-21 15:47] LABS: PROTEIN 16.9 mg/dL; Prot/Crea Ur Ratio 0.06
[2023-08-21 15:52] VITALS: BP 136/69; PULSE 83
--- NOTE | 2023-08-21 16:49 | W.OBNST ---
Date of service: 08/21/23 Time of Service: 16:00 NST Evaluation Reason for NST Reasons for Nonstress Test: GESTATIONAL HYPERTENSION Gestational Age Gestational Age in Weeks and Days: 35 Weeks and 3Days Test and Monitor Explained Test/Monitor Explained: Test Explained, Monitor Explained and Patient Verbalized Understanding Urine Results Urine Protein: Positive Urine Ketones: Positive Urine Glucose: Negative Urine Blood: Negative NST Information Date on Monitor: 08/21/23 Time on Monitor: 14:42 Date off Monitor: 08/21/23 Time off Monitor: 15:04 Total Time on Monitor: 22 NST Interventions: PO Hydration Contraction Frequency: 0 NST Evaluation Patient States Movement: Present FHR Baseline: 145 Variability: Moderate 6-25 bpm Accelerations: 15x15 Decelerations: None NST Results: Reactive Note Ultrasound Done: N/A. NST Note Note: Pt here for BP eval due to having some slightly more elevated than normal in the office today. She has had some that are mildly elevated but the diastolic remains below 90 and she is not persistently elevated. Pre-eclamptic labs were all normal. She denies any headache, visual changes, abd pains and says she really feels well overall. NST Reviewed and Verified by: Kendra Reeves
== END 2023-08-21 16:35 ==
LOC: NCHCN 14:34 → BCD 14:52 → OBS 15:01
PROVIDERS: PCP Student in an Organized Health Care Education/Training Program; Visit Provider Obstetrics & Gynecology
DX: O13.3 Gestational [pregnancy-induced] hypertension without significant proteinuria, third trimester (principal); Z3A.35 35 weeks gestation of pregnancy; O24.414 Gestational diabetes mellitus in pregnancy, insulin controlled
CPT/HCPCS: 59025; 80053; 85027; 82565; 84156

== ENCOUNTER 2023-08-25 07:29 | Outpatient (CLI) | payer OTHER, SELFPAY ==
[2023-08-25 08:11] VITALS: BP 141/81; PULSE 76; TEMP 36.8
[2023-08-25 08:37] VITALS: BP 141/81; PULSE 76
[2023-08-25 10:27] VITALS: BP 141/81; PULSE 76; TEMP 36.8
--- NOTE | 2023-08-25 10:27 | PDOC.NST_ITS ---
Date of service: 08/25/23 Time of Service: 10:27 NST Evaluation Reason for NST Reasons for Nonstress Test: GDM-INSULIN Gestational Age Gestational Age in Weeks and Days: 36 Weeks and 0Days Test and Monitor Explained Test/Monitor Explained: Test Explained, Monitor Explained and Patient Verbalized Understanding Vital Signs Blood Pressure: 141/81 Pulse: 76 Temperature: 98.2 F NST Information Date on Monitor: 08/25/23 Time on Monitor: 08:12 Date off Monitor: 08/25/23 Time off Monitor: 09:30 Total Time on Monitor: 78 NST Interventions: PO Hydration NST Evaluation Patient States Movement: Present FHR Baseline: 140 Variability: Moderate 6-25 bpm Accelerations: 15x15 Decelerations: None NST Results: Reactive Note Ultrasound Done: N/A. NST Note Note: Category 1, reactive nonstress test. Glycemic control is appropriate. Blood pressure remained stable. Patient has ultrasound scheduled 08/27/2023 at [facility] for growth. Will have NST with group B strep culture, and cervical examination as scheduled 08/28/2023. NST Reviewed and Verified by: Radha Trevino
== END 2023-08-25 09:31 | disposition home or self-care (01) ==
LOC: BCD 07:30 → OBS 08:10
PROVIDERS: PCP Student in an Organized Health Care Education/Training Program; Visit Provider Obstetrics & Gynecology
DX: O24.414 Gestational diabetes mellitus in pregnancy, insulin controlled (principal); Z3A.36 36 weeks gestation of pregnancy
CPT/HCPCS: 59025

== ENCOUNTER 2023-08-28 07:15 | Outpatient (CLI) | payer OTHER, SELFPAY ==
[2023-08-28 08:07] VITALS: BP 141/70; PULSE 80; TEMP 36.9
[2023-08-28 08:31] VITALS: BP 141/70; PULSE 80
--- NOTE | 2023-08-28 09:28 | W.OBNST ---
Date of service: 08/28/23 Time of Service: 09:28 NST Evaluation Reason for NST Reasons for Nonstress Test: CHRONIC HYPERTENSION Gestational Age Gestational Age in Weeks and Days: 36 Weeks and 3Days Test and Monitor Explained Test/Monitor Explained: Test Explained, Monitor Explained and Patient Verbalized Understanding Vital Signs Blood Pressure: 141/70 Pulse: 80 Temperature: 98.4 F NST Information Date on Monitor: 08/28/23 Time on Monitor: 08:10 Date off Monitor: 08/28/23 Time off Monitor: 08:40 Total Time on Monitor: 30 NST Interventions: PO Hydration NST Evaluation Patient States Movement: Present FHR Baseline: 145 Variability: Moderate 6-25 bpm Accelerations: 15x15 Decelerations: None NST Results: Reactive Note Ultrasound Done: N/A. NST Note Note: Category 1, reactive nonstress testing. Patient has chronic hypertension with increased need for antihypertensives. She also has pregestational diabetes and has a CGM and using fingersticks. Her insulin requirements have somewhat lessened. She has been seen by maternal- medicine who recommended delivery at 37 weeks. We will begin labor induction with cervical ripening on 09/01/2023. All questions answered. Appointment scheduled. NST Reviewed and Verified by: Radha Trevino
[2023-08-28 09:29] VITALS: BP 141/70; PULSE 80; TEMP 36.9
--- NOTE | 2023-08-28 10:17 | W.OBNST ---
Date of service: 08/28/23 Time of Service: 10:17 NST Evaluation Reason for NST Reasons for Nonstress Test: CHRONIC HYPERTENSION Gestational Age Gestational Age in Weeks and Days: 36 Weeks and 3Days Test and Monitor Explained Test/Monitor Explained: Test Explained, Monitor Explained and Patient Verbalized Understanding Vital Signs Blood Pressure: 141/70 Pulse: 80 Temperature: 98.4 F NST Information Date on Monitor: 08/28/23 Time on Monitor: 08:10 Date off Monitor: 08/28/23 Time off Monitor: 08:40 Total Time on Monitor: 30 NST Interventions: PO Hydration NST Evaluation Patient States Movement: Present FHR Baseline: 145 Variability: Moderate 6-25 bpm Accelerations: 15x15 Decelerations: None NST Results: Reactive Note Ultrasound Done: N/A. NST Note Note: Category 1, reactive nonstress test. Blood pressure is stable. Will plan labor induction starting at 37 weeks with cervical ripening. Group B strep culture performed. Cervical exam soft, fingertip, 70%, -2 station. NST Reviewed and Verified by: Radha Trevino
[2023-08-28 10:18] VITALS: BP 141/70; PULSE 80; TEMP 36.9
== END 2023-08-28 09:00 | disposition home or self-care (01) ==
LOC: BCD 07:16 → OBS 08:06
PROVIDERS: PCP Student in an Organized Health Care Education/Training Program; Visit Provider Obstetrics & Gynecology
DX: O13.3 Gestational [pregnancy-induced] hypertension without significant proteinuria, third trimester (principal); O24.414 Gestational diabetes mellitus in pregnancy, insulin controlled; Z3A.36 36 weeks gestation of pregnancy
CPT/HCPCS: 59025; 87081

== ENCOUNTER 2023-09-02 18:00 | Inpatient (IN) | payer OTHER, SELFPAY ==
--- NOTE | 2023-08-28 16:56 | HPE_ITS ---
Date of service: 08/28/23 Time of Service: 16:56 Assessment and Plan Assessment and plan (1) HRP (high risk ): Status: Acute Assessment and plan: Labor induction at 37 weeks due to chronic hypertension with increased need for antihypertensives, and pregestational diabetes with decreasing insulin requirements. (2) Susceptible to varicella (non-immune), currently : Status: Acute (3) Hypertension: Status: Chronic (4) Diabetes mellitus: Status: Chronic OB-HPI Labor/Delivery History of Present Illness Reason for Visit: labor/delivery Chief Complaint: Scheduled Induction of Labor Indication for Induction: Chronic Hypertension and Chronic Maternal Diabetes. ARYAN Calculator Estimated Delivery Date Method Current WG Current Estimate 09/22/23 LMP (Certain) 36w 3d Other Estimates 09/17/23 Ultrasound #1 37w 1d Comments: Patient will have labor induction on 09/01/2023 due to chronic hypertension, currently on labetalol, 400 mg twice daily and pregestational diabetes. She has a continuous glucose monitor, and is taking 46 units of insulin on a daily basis. She has had slightly decreasing insulin requirements over the course of the past week. She was seen at [facility] for evaluation and ultrasound. Her baby has normal growth, approximately 3100 g, vertex, appropriate fluid, and the recommendation is for labor induction at 37 weeks. Risk benefits alternatives were discussed. History of Present Expected Delivery Route/Plan MD care. FOB: Norm Vasquez Specific Issues/Plan 1. Advanced maternal age- panorama -low risk, SMA - neg - ASA recommended 2. Diabetes on Glucophage 1000mg BID - 04/23/23. Lantus 46units @bedtime. - Level 2 u/s, echo: MFM @ [facility]. - NSTs twice weekly @ 32w EGA. - Growth sono @33wks [facility]: 50%ile 3. Varicella Non-Immune, offer vaccine 4. GHTN - Labetalol 400mg BID Narrative: Labor induction at 37 weeks Informed Consent Informed Consent: Induction of Labor Review of Systems Constitutional Constitutional: Reports as per HPI, Denies fatigue, Denies headache(s) and Denies malaise Eyes Eyes: Reports as per HPI and Reports system reviewed and no additional complaints, except as documented ENT Ears, Nose, Mouth, and Throat: Reports system reviewed and no additional complaints, except as documented and Denies headache(s) Cardiovascular Cardiovascular: Reports system reviewed and no additional complaints, except as documented, Denies chest pain, Denies diaphoresis and Denies irregular heart rhythm Respiratory Respiratory: Denies chest congestion and Denies cough Gastrointestinal Gastrointestinal: Reports system reviewed and no additional complaints, except as documented Genitourinary Genitourinary: Reports system reviewed and no additional complaints, except as documented Musculoskeletal Musculoskeletal: Reports system reviewed and no additional complaints, except as documented Integumentary/Breasts Skin/Breast: Reports system reviewed and no additional complaints, except as doc umented Neurologic Neurologic: Reports system reviewed and no additional complaints, except as documented and Denies headache(s) Psychiatric Psychiatric: Reports system reviewed and no additional complaints, except as documented Endocrine Endocrine: Denies fatigue PFSH All Active Problems (Updated 07/21/23 @ 09:10 by Radha Trevino DO) Sciatica (Acute) Susceptible to varicella (non-immune), currently (Acute) HRP (high risk ) (Acute) Abnormal antibody titer (Acute) No VARICELLA Titer levels per repro-endo lab findings .. no action for now! Supposedly did have chicken pox, or never ill, but seems immune (Hx [id number]) Vitamin D deficiency (Acute) ID @ repro-endo! Started on 4,000 for .. Hx of thyroid disease (Acute) Hx hypothyroid, tolerated Rx. TSH normalized and Rx D/C'd (approx 2 years). Hx of sinus tachycardia (Acute) Asymptomatic, but baseline EKG requested [ ] Hypertension (Chronic) Improving with exercise/wt loss .. expect d/c ACEi for BP WNL (OR when IUD removed) Diabetes mellitus (Chronic) Improved, A1C 6.4, 01/2022. Fam Hx DM. A1C 9.9. Metabolic syndrome (Acute) Medical History (Updated 07/21/23 @ 09:10 by Radha Trevino DO) Family history of thyroid cancer Gparent Subfertility of couple @ fertility-testing consult! May return .. Rotator cuff tear, right Healing well .. PT PRN Impingement syndrome of right shoulder Tendonitis of long head of biceps brachii of right shoulder Weight loss, intentional Unfortunately gained just pre-, but feeling well and remains active COVID-19 (~12/2021) Left leg injury left calf Hx of Terminated, mifepristone and misoprostol. Menorrhagia Hx heavy menses, anemia. Improved w/ IUD. Abnormal Pap smear of vagina and vaginal HPV (~2015) HPV (human papilloma virus) infection (~2015) Surgical History History of colposcopy (~2015) benign History of wisdom tooth extraction (~2001) Family History Maternal Grandmother Diabetes Hypertension Hepatocellular carcinoma Maternal Grandfather Hypertension Alcohol use disorder Anaplastic thyroid carcinoma Liposarcoma of chest wall Father Hypertension Hyperlipidemia Social History Smoking/Tobacco Use Status: Never Smoking risk assessment performed?: Yes Alcohol Intake: current Alcohol Intake frequency: a few times a month Drug use: Never Substance use type: does not use Adopted: No Caregiver/Support person: No Foster care: No Household members: significant other and children Housing: house Number of Children: 1 Communication Needs: None Education Level: other Details: MD Do you need help understanding health information?: Never current occupation: [employer] Pets and animals: Yes (1,1) Pets and animals: cat(s) and other Details: rabbit Sexually active: Yes Do you think of yourself as: straight/heterosexual Current gender identity: female What is your relationship status?: living with partner How often do you talk on the phone with friends or family?: three or more times per week How often do you get together with friends or relatives?: once per week Do you belong to any clubs or organized social groups?: yes Panel score (0-1 are the most socially isolated patients): 3 What type of physical activity do you participate in: walking and other Details: hiking, [place] Duration: 15-30 minutes/day Frequency: 3-4 times per week Juana/Baptism: None Special juana needs: No Seatbelt use: always Helmet use: Yes Helmet use: always Drive intox or ride w/intox medical van driver: No Do you feel safe at home: Yes Do you feel safe in your relationship?: Yes History History 2 Para 0 Hx # Term Pregnancies 0 Multiple births 0 Hx # Pregnancies 0 Ectopic pregnancies 0 AB induced 1 Hx Number of Living Children 0 AB spontaneous 0 Past Pregnancies Del. Date GA/Weeks # Preg Succ Route Wgt Sex Labor Lgth Anesth esia Location Prov Complic 02/14/16 5 Delivery Date: 02/14/16 Last Updated by: Isabel Danielle CNM ETOP without complications Meds Allergies and Home Medications Allergies Allergy/AdvReac Type Severity Reaction Status Date / Time No Known Allergies Allergy Verified 07/16/23 15:49 Home Medications Medication Instructions Recorded Confirmed Type blood-glucose meter (OneTouch #1 ea 01/05/21 08/14/23 Rx Verio Meter) coenzyme Q10 200 mg capsule 200 mg PO DAILY 01/17/23 08/14/23 History cholecalciferol (vitamin D3) 50 50 mcg PO BID #180 caps 01/18/23 08/14/23 Rx mcg (2,000 unit) capsule lancets 33 gauge (OneTouch Delica #100 ea 01/23/23 08/14/23 Rx Plus Lancet) labetalol 200 mg tablet 200 mg PO BID #180 tabs 03/12/23 08/14/23 Rx aspirin 81 mg capsule 162 mg PO DAILY 03/14/23 08/14/23 History blood sugar diagnostic (OneTouch #100 ea 04/24/23 08/14/23 Rx Verio test strips) metformin 500 mg tablet,extended 1,000 mg (2 x 500 mg) PO BID #360 04/24/23 08/14/23 Rx release 24hr (osmotic) tabs blood-glucose meter,continuous 05/02/23 08/14/23 History (Dexcom G6 Accounting Consultant) blood-glucose sensor (Dexcom G6 05/02/23 08/14/23 History Sensor device) blood-glucose transmitter (Dexcom #1 ea 05/02/23 08/14/23 Rx G6 Transmitter device) insulin glargine 100 unit/mL 46 unit subcut QHS 05/21/23 08/14/23 History subcutaneous cartridge vits no.126-ferrous fum 1 tab PO DAILY #90 tabs 06/03/23 08/14/23 Rx 28 mg iron-folic acid 800 mcg tablet (Classic ) Exam Physical Exam Vital Signs Reviewed: Yes Constitutional Constitutional: no acute distress Detailed Labor and Delivery Exam Elizabeth Score: Cervical Points Exam 0 1 2 3 Dilation Closed 1-2cm 3-4 cm 5-6cm Effacement 0-30% 40-50% 60-70% 80% Consistency Firm Medium Soft Station -3 -2 -1,0 +1,+2 Position Posterior Mid Anterior ELIZABETH Score(Cervical Ripeness Score): 7 Amniotic Membrane Status: Intact Contraction Frequency(min): Irregular HEENT Exam HEENT Exam: Normal Neck Exam Neck Exam: Normal Chest/Brest/Axilla Exam Chest Exam: Normal Respiratory Exam Respiratory Exam: Normal Cardiovascular Exam Cardiovascular Exam: Normal Exam Exam: Normal Extremities Exam Extremities Exam: Normal Back/Spine/Pelvis Exam Pelvis Adequate: Yes Neurological Exam Neurological Exam: Normal Psychiatric Exam Psychiatric Exam: Normal Risk Assessment Risk for Shoulder Dystocia Historical/Initial OB: POSITIVE FOR: Pre- BMI>30; NEGATIVE FOR: Pelvic Abnormality, Previous Shoulder Dystocia or Previous Macrosomia Date/Initial: 03/14/23 Delivery Plan @ 36wks: Labor induction at 37 weeks Risk for Pre-Eclampsia Yes, if one or more: POSTIVE FOR: Chronic HTN and Pre-gestational DM; NEGATIVE FOR: Hx Pre-E/Gest HTN, Multiple Gestation, Renal Disease, Systemic Lupus or APA Syndrome Yes, if 2 or more: POSITIVE FOR: Nulliparity, Age>= 35 yrs and BMI>30; NEGATIVE FOR: >10yr btwn pregnancies, ethinicty, Mother/Sister w/ Pre-E or Previous IUGR Risk for Post- Hemorrhage Initial: NEGATIVE FOR: Multiple Gestation, Previous PPH, Known Clotting Deficiency, Grand Multiparity or Anticoagulation Interventions: Mother had PPH with transfusion long labor Counseled re: Active Management: Yes Date/Initials: 03/14/23 Risks Reviewed Risks Reviewed Upon Admission: Yes
[2023-09-02] VITALS (55 sets, daily range): BP systolic 142–175; BP diastolic 72–87; PULSE 0–101; RESP 18; TEMP 36.8; O2SAT 98
--- NOTE | 2023-09-02 18:41 | W.PM.OBNL1 ---
Date of service: 09/02/23 Time of Service: 18:41 Informed Consent Informed Consent: Induction of Labor Pelvic Exam Dilation: 0.5 Effacement (%): 60 station: -3 Cervix Position: mid Consistency: soft Fetus A Heart Rate Baseline: 160 Variability: Moderate (6-25 BPM) Categories: Category I Assessment and Plan Assessment and plan (1) HRP (high risk ): Status: Acute Assessment and plan: Labor induction with appropriately grown fetus and good glycemic control. Recommendation is for delivery between 37 and 38 weeks per [facility] due to increasing antihypertensive need, and decreasing insulin requirement. All questions were answered. Cervical ripening tonight. Pitocin augmentation tomorrow. Anticipate vaginal . (2) Hypertension: Status: Chronic (3) Diabetes mellitus: Status: Chronic Objective Pulse BP Pulse Ox 87 175/87 H 98 09/02/23 18:33 09/02/23 18:18 09/02/23 18:33 Laboratory Results WBC Cancelled 09/01/23 16:32 RBC Cancelled 09/01/23 16:32 Hgb Cancelled 09/01/23 16:32 Hct Cancelled 09/01/23 16:32 MCV Cancelled 09/01/23 16:32 MCH Cancelled 09/01/23 16:32 MCHC Cancelled 09/01/23 16:32 RDW Cancelled 09/01/23 16:32 Plt Count Cancelled 09/01/23 16:32 MPV Cancelled 09/01/23 16:32 Sodium Cancelled 09/01/23 18:00 Potassium Cancelled 09/01/23 18:00 Chloride Cancelled 09/01/23 18:00 Carbon Dioxide Cancelled 09/01/23 18:00 Anion Gap Cancelled 09/01/23 18:00 BUN Cancelled 09/01/23 18:00 Creatinine Cancelled 09/01/23 18:00 Est GFR (CKD-EPI 2020) Cancelled 09/01/23 18:00 Glucose Cancelled 09/01/23 18:00 Calcium Cancelled 09/01/23 18:00 Total Bilirubin Cancelled 09/01/23 18:00 AST Cancelled 09/01/23 18:00 ALT Cancelled 09/01/23 18:00 Alkaline Phosphatase Cancelled 09/01/23 18:00 Total Protein Cancelled 09/01/23 18:00 Albumin Cancelled 09/01/23 18:00 ABO/Rh Cancelled 09/01/23 18:32 Antibody Screen Cancelled 09/01/23 18:32 Subjective Interval history since last seen: Patient is admitted today for labor induction due to pregestational diabetes and hypertension which has increasing antihypertensive requirements, and decreasing insulin requirements. The recommendation by maternal- medicine was for labor induction between 37 and 38 weeks. The risk benefits and alternatives of labor induction have been explained to the patient in full informed consent was obtained. She will have cervical ripening with Cervidil throughout the night tonight with the anticipation of Pitocin augmentation of her labor tomorrow. Will continuously monitor her glucose levels with her CGM. Her fasting this morning was normal at 85. Baseline laboratory studies will be performed today which will include a CBC and a CMP and a type and screen. Anesthesia will be notified of her admission. All questions were answered. Results Hemoglobin/Hematocrit: Hgb Cancelled 09/01/23 16:32 Hct Cancelled 09/01/23 16:32
[2023-09-02] MEDS: Labetalol 100 MG TAB 400 MG PO (19:06)
[2023-09-02 19:15] LABS: Abs Immature Grans 0.06 10^3/uL (0.0-0.06); Absolute Eosinophil Count 0.12 10^3/uL (0.0-0.7); Absolute Lymphocyte Count 2.41 10^3/uL (1.2-3.4); Absolute Monocyte Count 0.97 10^3/uL (0.1-0.8); Basophils % 0.2 %; Eosinophils % 0.9 %; HCT 36.3 % (36.0-46.0); HGB 12.1 g/dL (11.2-15.7); Immature Grans % 0.5 %; Lymphocytes % 18.6 %; MCH 28.1 pg (27.0-33.0); MCHC 33.3 % (32.0-36.0); MCV 84 fL (80-95); MPV 10.8 fL (8.0-11.0); Monocytes % 7.5 %; Neutrophils % 72.3 %; Platelet Count 312 10^3/uL (130-400); RDW 14.2 % (11.7-14.6); RDW-SD 42.9 fL; WBC 12.95 10^3/uL (4.4-10.8)
[2023-09-02 19:16] LABS: Absolute Basophil Count 0.03 10^3/uL (0.0-0.2); Absolute Neutrophil Count 9.36 10^3/uL (1.2-6.7)
[2023-09-02 19:29] LABS: ALT 18 U/L (14-59); AST 17 U/L (15-37); Albumin 2.8 g/dL (3.4-5.0); Alkaline Phosphatase 169 U/L (46-116); Anion Gap 13.7 mmol/L (3-11); BUN 12 mg/dL (7-18); Bilirubin, Total 0.31 mg/dL (0.2-1.0); CO2 19.3 mmol/L (21.0-32.0); CREATININE 0.6 mg/dL (0.55-1.02); Calcium 9.2 mg/dL (8.5-10.1); Chloride 105 mmol/L (98-107); Estimated GFR 117.75 (mL/min/1.73m2); Glucose 71 mg/dL (74-106); Potassium 3.9 mmol/L (3.5-5.1); Sodium 138 mmol/L (136-145); Total Protein 6.5 g/dL (6.4-8.2)
[2023-09-02] MEDS: Dinoprostone-CERVICAL 10 MG VSUPP VG (19:55)
[2023-09-02] MEDS: Normal Saline Flush 10 ML SYR IVP (20:10)
[2023-09-02] MEDS: Insulin Glargine 300 UNITS/3 ML PEN 46 UNITS SC (20:38)
[2023-09-03] VITALS (280 sets, daily range): BP systolic 120–170; BP diastolic 67–89; PULSE 0–133; RESP 17–96; TEMP 36.7–37; O2SAT 95–99; BMI 38.7
[2023-09-03] MEDS: Labetalol 100 MG TAB 400 MG PO ×2 (08:02→20:18)
[2023-09-03] MEDS: metFORMIN C.R. 500 MG TABCR 1000 MG PO (08:02)
[2023-09-03] MEDS: Normal Saline Flush 10 ML SYR IVP (08:03)
--- NOTE | 2023-09-03 09:12 | PGE_ITS ---
Date of service: 09/03/23 Time of Service: 09:12 Informed Consent Informed Consent: Induction of Labor Pelvic Exam Dilation: 0.5 Effacement (%): 60 station: -2 Cervix Position: posterior Consistency: soft Contractions Contraction Frequency(min): q 4-10 Fetus A Heart Rate Baseline: 150 Presentation: Cephalic Variability: Moderate (6-25 BPM) Categories: Category I Assessment and Plan Assessment and plan (1) HRP (high risk ): Status: Acute Assessment and plan: High risk due to advanced maternal age, chronic hypertension, pregestational diabetes. Currently 37+ weeks. Signs of diminished placental r eserve due to decreasing insulin requirements. Blood pressures remain 140s over 80s to 90 on labetalol, 400 mg twice daily. Will proceed with labor induction via Pitocin augmentation. Patient will have pain control as needed. Continue to monitor glycemic control. Careful monitoring of blood pressure. Low tolerance for intolerance of labor. (2) Hypertension: Status: Chronic (3) Diabetes mellitus: Status: Chronic Objective Abnormal lab results 09/02/23 Range/Units 19:00 WBC 12.95 H (4.4-10.8) 10^3/uL Absolute Neutrophils 9.36 H (1.2-6.7) 10^3/uL Absolute Monocytes 0.97 H (0.1-0.8) 10^3/uL Carbon Dioxide 19.3 L (21.0-32.0) mmol/L Anion Gap 13.7 H (3-11) mmol/L Glucose 71 L (74-106) mg/dL Alkaline Phosphatase 169 H (46-116) U/L Albumin 2.8 L (3.4-5.0) g/dL Temp Pulse Resp BP Pulse Ox 98.1 F 78 18 160/80 H 98 09/03/23 07:26 09/03/23 09:09 09/03/23 07:26 09/03/23 07:26 09/03/23 07:26 Laboratory Results WBC 12.95 10^3/uL (4.4-10.8) H 09/02/23 19:00 RBC 4.30 10^6/uL (3.93-5.22) 09/02/23 19:00 Hgb 12.1 g/dL (11.2-15.7) 09/02/23 19:00 Hct 36.3 % (36.0-46.0) 09/02/23 19:00 MCV 84 fL (80-95) 09/02/23 19:00 MCH 28.1 pg (27.0-33.0) 09/02/23 19:00 MCHC 33.3 % (32.0-36.0) 09/02/23 19:00 RDW 14.2 % (11.7-14.6) 09/02/23 19:00 Plt Count 312 10^3/uL (130-400) 09/02/23 19:00 MPV 10.8 fL (8.0-11.0) 09/02/23 19:00 Immature Gran % 0.5 % 09/02/23 19:00 Neutrophils % 72.3 % 09/02/23 19:00 Lymphocytes % 18.6 % 09/02/23 19:00 Monocytes % 7.5 % 09/02/23 19:00 Eosinophils % 0.9 % 09/02/23 19:00 Basophils % 0.2 % 09/02/23 19:00 Nucleated RBC % 0.0 % (0.0-0.3) 09/02/23 19:00 Absolute Neutrophils 9.36 10^3/uL (1.2-6.7) H 09/02/23 19:00 Absolute Lymphocytes 2.41 10^3/uL (1.2-3.4) 09/02/23 19:00 Absolute Monocytes 0.97 10^3/uL (0.1-0.8) H 09/02/23 19:00 Absolute Eosinophils 0.12 10^3/uL (0.0-0.7) 09/02/23 19:00 Absolute Basophils 0.03 10^3/uL (0.0-0.2) 09/02/23 19:00 Sodium 138 mmol/L (136-145) 09/02/23 19:00 Potassium 3.9 mmol/L (3.5-5.1) 09/02/23 19:00 Chloride 105 mmol/L (98-107) 09/02/23 19:00 Carbon Dioxide 19.3 mmol/L (21.0-32.0) L 09/02/23 19:00 Anion Gap 13.7 mmol/L (3-11) H 09/02/23 19:00 BUN 12 mg/dL (7-18) 09/02/23 19:00 Creatinine 0.6 mg/dL (0.55-1.02) 09/02/23 19:00 Est GFR (CKD-EPI 2020) 117.75 (mL/min/1.73m2) 09/02/23 19:00 Glucose 71 mg/dL (74-106) L 09/02/23 19:00 Calcium 9.2 mg/dL (8.5-10.1) 09/02/23 19:00 Total Bilirubin 0.31 mg/dL (0.2-1.0) 09/02/23 19:00 AST 17 U/L (15-37) 09/02/23 19:00 ALT 18 U/L (14-59) 09/02/23 19:00 Alkaline Phosphatase 169 U/L (46-116) H 09/02/23 19:00 Total Protein 6.5 g/dL (6.4-8.2) 09/02/23 19:00 Albumin 2.8 g/dL (3.4-5.0) L 09/02/23 19:00 ABO/Rh A Positive 09/02/23 19:00 Antibody Screen NEGATIVE 09/02/23 19:00 Subjective Interval history since last seen: Patient seen and examined, recommended attempt at Holland balloon insertion. Patient placed in dorsal lithotomy. Cervix is fingertip, 60%, posterior, soft. Patient used nitrous for discomfort during examination. Unable to place Holland balloon. Will proceed with Pitocin augmentation of labor. Continue to monitor glycemic control. Discussed intolerance of labor versus intolerance. Blood pressure stable. Accu-Cheks appropriate. When active, will do fingersticks every 2-4 hours. Results Hemoglobin/Hematocrit: Hgb 12.1 g/dL (11.2-15.7) 09/02/23 19:00 Hct 36.3 % (36.0-46.0) 09/02/23 19:00 Abnormal Lab Findings: Abnormal Labs 09/02/23 19:00 WBC 12.95 H Absolute Neutrophils 9.36 H Absolute Monocytes 0.97 H Carbon Dioxide 19.3 L Anion Gap 13.7 H Glucose 71 L Alkaline Phosphatase 169 H Albumin 2.8 L
[2023-09-03] MEDS: Lactated Ringers 1,000 ML 125 ML IV ×2 (09:59→17:20)
[2023-09-03] MEDS: Oxytocin/Normal Saline 30 UNIT/500 ML BAG 2 UNITS IV (10:02)
[2023-09-03] MEDS: Insulin Glargine 300 UNITS/3 ML PEN 30 UNITS SC (10:32)
--- NOTE | 2023-09-03 12:08 | ANES.PREOP_ITS ---
General Info Date of Service Date Performed: 09/03/23 Height: 5 ft 6 in Weight: 108.862 kg Body Mass Index (BMI): 38.7 Surgical Procedure: Labor epidural Meds Allergies and Home Medications Allergies Allergy/AdvReac Type Severity Reaction Status Date / Time No Known Allergies Allergy Verified 09/02/23 22:51 Home Medication Medication Instructions Recorded blood-glucose meter (OneTouch #1 ea 01/05/21 Verio Meter) coenzyme Q10 200 mg capsule 200 mg PO DAILY 01/17/23 cholecalciferol (vitamin D3) 50 50 mcg PO BID #180 caps 01/18/23 mcg (2,000 unit) capsule lancets 33 gauge (OneTouch Delica #100 ea 01/23/23 Plus Lancet) labetalol 200 mg tablet 200 mg PO BID #180 tabs 03/12/23 aspirin 81 mg capsule 162 mg PO DAILY 03/14/23 blood sugar diagnostic (OneTouch #100 ea 04/24/23 Verio test strips) metformin 500 mg tablet,extended 1,000 mg (2 x 500 mg) PO BID #360 04/24/23 release 24hr (osmotic) tabs blood-glucose meter,continuous 05/02/23 (Dexcom G6 Donor Services Technician) blood-glucose sensor (Dexcom G6 05/02/23 Sensor device) blood-glucose transmitter (Dexcom #1 ea 05/02/23 G6 Transmitter device) insulin glargine 100 unit/mL 46 unit subcut QHS 05/21/23 subcutaneous cartridge vits no.126-ferrous fum 1 tab PO DAILY #90 tabs 06/03/23 28 mg iron-folic acid 800 mcg tablet (Classic ) Current Visit Medications: Current Medications Generic Name Dose Route Start Last Admin Trade Name Baironq PRN Reason Stop Dose Admin Ringer's Solution 1,000 mls @ 200 mls/hr 09/01/23 18:00 09/03/23 09:59 IV 125 mls/hr [facility] Administration Oxytocin/Sodium Chloride 30 unit in 500 mls @ 2 mls/hr 09/03/23 09:15 09/03/23 11:47 Pitocin/Normal Saline IV 8 milliunits/min [facility] 8 mls/hr Titration Protocol 2 MILLIUNITS/MIN IV Miscellaneous Supplies 1 each 09/01/23 18:00 Iv Access IV DIRECTED DANIKA IV Miscellaneous Supplies 1 each 09/02/23 18:45 Iv Access IV DIRECTED DANIKA Insulin Glargine 30 units 09/03/23 08:30 09/03/23 10:32 Insulin Glargine 300 Units/3 Ml Pen SC 30 units BID DANIKA Administration Labetalol HCl 400 mg 09/02/23 20:00 09/03/23 08:02 Labetalol 100 Mg Tab PO 400 mg BID DANIKA Administration Metformin HCl 1,000 mg 09/03/23 08:00 09/03/23 08:02 Metformin C.R. 500 Mg Tabcr PO 1,000 mg BID@0800,1700 DANIKA Administration Sodium Chloride 0 ml 09/01/23 18:00 Normal Saline Flush 10 Ml Syr IVP PRN PRN Sodium Chloride 0 ml 09/01/23 18:00 09/03/23 08:03 Normal Saline Flush 10 Ml Syr IVP 10 ml BID DANIKA Administration Sodium Chloride 0 ml 09/01/23 18:00 Normal Saline 10 Ml Vial IJ DIRECTED PRN Terbutaline Sulfate 0.25 mg 09/01/23 18:00 Terbutaline 1 Mg/Ml Vial SC PRN PRN PFSH Active Problems Active Problems: Problem Status Onset Code Sciatica M54.30 Susceptible to varicella (non-immune), currently O09.899, Z28.39 HRP (high risk ) O09.90 Abnormal antibody titer R76.0 Vitamin D deficiency E55.9 Hx of thyroid disease Z86.39 Hx of sinus tachycardia Z86.79 Hypertension I10 Diabetes mellitus E11.9 Metabolic syndrome E88.81 Medical History Medical History (Updated 07/21/23 @ 09:10 by Radha Trevino DO) Family history of thyroid cancer Gparent Subfertility of couple @ fertility-testing consult! May return .. Rotator cuff tear, right Healing well .. PT PRN Impingement syndrome of right shoulder Tendonitis of long head of biceps brachii of right shoulder Weight loss, intentional Unfortunately gained just pre-, but feeling well and remains active COVID-19 (~12/2021) Left leg injury left calf Hx of Terminated, mifepristone and misoprostol. Menorrhagia Hx heavy menses, anemia. Improved w/ IUD. Abnormal Pap smear of vagina and vaginal HPV (~2015) HPV (human papilloma virus) infection (~2015) Surgical History Surgical History History of colposcopy (~2015) benign History of wisdom tooth extraction (~2001) Tobacco Smoking/Tobacco Use Status: Never Passive smoking exposure: No Alcohol Alcohol Intake: former Substance Use Substance use: Never Substance use type: does not use Prental History History 2 2 Para 0 Hx # Term Pregnancies 0 Multiple births 0 Hx # Pregnancies 0 Ectopic pregnancies 0 AB induced 1 Hx Number of Living Children 0 AB spontaneous 0 Past Pregnancies Del. Date GA/Weeks # Preg Succ Route Wgt Sex Labor Lgth Anesth esia Location Prov Complic 02/14/16 5 Delivery Date: 02/14/16 Last Updated by: Isabel Danielle CNM ETOP without complications Vital Signs and Lab Results Vital Signs Most Recent Vital Signs in EMR: Most Recent Vital Signs Temp Pulse Resp BP Pulse Ox 36.8 C 72 18 135/67 98 09/03/23 11:48 09/03/23 12:05 09/03/23 07:26 09/03/23 11:46 09/03/23 07:26 Point of Care Results Point of Care Results: Finger Stick Blood Glucose 108 09/03/23 10:42 Lab Results 09/02/23 19:00 09/02/23 19:00 Blood Type / Crossmatch: 2 Antibody Screen NEGATIVE 09/02/23 Complete Blood Count: 2 White Blood Count 12.95 10^3/uL (4.4-10.8) H 09/02/23 19:00 Red Blood Count 4.30 10^6/uL (3.93-5.22) 09/02/23 19:00 Hemoglobin 12.1 g/dL (11.2-15.7) 09/02/23 19:00 Hematocrit 36.3 % (36.0-46.0) 09/02/23 19:00 Platelet Count 312 10^3/uL (130-400) 09/02/23 19:00 Complete Metabolic Panel: 2 Sodium 138 mmol/L (136-145) 09/02/23 19:00 Potassium 3.9 mmol/L (3.5-5.1) 09/02/23 19:00 Chloride 105 mmol/L (98-107) 09/02/23 19:00 Carbon Dioxide 19.3 mmol/L (21.0-32.0) L 09/02/23 19:00 BUN 12 mg/dL (7-18) 09/02/23 19:00 Creatinine 0.6 mg/dL (0.55-1.02) 09/02/23 19:00 Est GFR (CKD-EPI 2020) 117.75 (mL/min/1.73m2) 09/02/23 19:00 Calcium 9.2 mg/dL (8.5-10.1) 09/02/23 19:00 Albumin 2.8 g/dL (3.4-5.0) L 09/02/23 19:00 Glucose 71 mg/dL (74-106) L 09/02/23 19:00 Liver Function Panel: 2 Alanine Aminotransferase (ALT/SGPT) 18 U/L (14-59) 09/02/23 19: 00 Aspartate Amino Transf (AST/SGOT) 17 U/L (15-37) 09/02/23 19:00 Coagulation Panel: 2 No Data to Display Cardiac Panel: 2 No Data to Display Arterial Blood Gas: 2 No Data to Display Venous Blood Gas: 2 No Data to Display Pancreas Panel: 2 No Data to Display Thyroid Panel: 2 No Data to Display Infectious Disease: 2 No Data to Display Blood Cultures: 2 No Data to Display Toxicology Panel: 2 No Data to Display Panel: 2 No Data to Display Anesthesia Assessment and Plan Anesthesia History Personal History: No History of Anesthesia Complications Family History: No Family History of Anesthesia Complications Exercise Tolerance Exercise Tolerance: Metabolic Equivalents>4 Pertinent Negatives Pertinent Negatives: No Symptoms of GERD, No Major Cardiovascular Symptoms or Complaints, No Major Pulmonary Symptoms or Complaints and No History of CVA/TIA Cardiac & Pulmonary Exam Cardiac Exam: Normal S1/S2 Heart Sounds Pulmonary Exam: Clear Bilateral Breath Sounds Implantable Cardiac Device Does patient have a Pacemaker or an ICD?: No Airway Exam Known Difficult Airway: No Mallampati Class: 2 Mouth Opening: Normal (> 3cm) Thyromental Distance: Greater than 3 cm Neck Range of Motion: Full ROM Neck Circumference: Normal Teeth Condition: Normal Dentition ASA Classification ASA Score: ASA 3 Emergency Case?: No NPO Status NPO Status: NPO Clears >2 hours, Solids >8 hours and Full Stomach () Status Status: Confirmed Anesthesia Plan Resuscitation Status: Full Code Anesthesia Technique: Labor Epidural Airway Planned: Natural Airway Pain Management: Epidural Monitors Used: Standard Monitors Preoperative Comments:: BP improved, blood sugars stable, wishes to have epidural when in more active labor.
--- NOTE | 2023-09-03 14:16 | W.PM.OBNL1 ---
Date of service: 09/03/23 Time of Service: 14:17 Informed Consent Informed Consent: Induction of Labor Pelvic Exam Dilation: 1 Effacement (%): 60 station: -2 Contractions Contraction Frequency(min): Irregular Fetus A Heart Rate Baseline: 150 Assessment and Plan Assessment and plan (1) HRP (high risk ): Status: Acute Assessment and plan: Chronic hypertension, on labetalol, 400 twice daily. Elevated blood pressure recently. Cervical exam unchanged. Pitocin at 14. Continue to increase. Monitor tolerance of labor, and labor progress. (2) Hypertension: Status: Chronic (3) Diabetes mellitus: Status: Chronic Objective Abnormal lab results 09/02/23 Range/Units 19:00 WBC 12.95 H (4.4-10.8) 10^3/uL Absolute Neutrophils 9.36 H (1.2-6.7) 10^3/uL Absolute Monocytes 0.97 H (0.1-0.8) 10^3/uL Carbon Dioxide 19.3 L (21.0-32.0) mmol/L Anion Gap 13.7 H (3-11) mmol/L Glucose 71 L (74-106) mg/dL Alkaline Phosphatase 169 H (46-116) U/L Albumin 2.8 L (3.4-5.0) g/dL Temp Pulse Resp BP Pulse Ox 98.2 F 66 18 170/80 H 98 09/03/23 11:48 09/03/23 14:13 09/03/23 07:26 09/03/23 13:58 09/03/23 07:26 Laboratory Results WBC 12.95 10^3/uL (4.4-10.8) H 09/02/23 19:00 RBC 4.30 10^6/uL (3.93-5.22) 09/02/23 19:00 Hgb 12.1 g/dL (11.2-15.7) 09/02/23 19:00 Hct 36.3 % (36.0-46.0) 09/02/23 19:00 MCV 84 fL (80-95) 09/02/23 19:00 MCH 28.1 pg (27.0-33.0) 09/02/23 19:00 MCHC 33.3 % (32.0-36.0) 09/02/23 19:00 RDW 14.2 % (11.7-14.6) 09/02/23 19:00 Plt Count 312 10^3/uL (130-400) 09/02/23 19:00 MPV 10.8 fL (8.0-11.0) 09/02/23 19:00 Immature Gran % 0.5 % 09/02/23 19:00 Neutrophils % 72.3 % 09/02/23 19:00 Lymphocytes % 18.6 % 09/02/23 19:00 Monocytes % 7.5 % 09/02/23 19:00 Eosinophils % 0.9 % 09/02/23 19:00 Basophils % 0.2 % 09/02/23 19:00 Nucleated RBC % 0.0 % (0.0-0.3) 09/02/23 19:00 Absolute Neutrophils 9.36 10^3/uL (1.2-6.7) H 09/02/23 19:00 Absolute Lymphocytes 2.41 10^3/uL (1.2-3.4) 09/02/23 19:00 Absolute Monocytes 0.97 10^3/uL (0.1-0.8) H 09/02/23 19:00 Absolute Eosinophils 0.12 10^3/uL (0.0-0.7) 09/02/23 19:00 Absolute Basophils 0.03 10^3/uL (0.0-0.2) 09/02/23 19:00 Sodium 138 mmol/L (136-145) 09/02/23 19:00 Potassium 3.9 mmol/L (3.5-5.1) 09/02/23 19:00 Chloride 105 mmol/L (98-107) 09/02/23 19:00 Carbon Dioxide 19.3 mmol/L (21.0-32.0) L 09/02/23 19:00 Anion Gap 13.7 mmol/L (3-11) H 09/02/23 19:00 BUN 12 mg/dL (7-18) 09/02/23 19:00 Creatinine 0.6 mg/dL (0.55-1.02) 09/02/23 19:00 Est GFR (CKD-EPI 2020) 117.75 (mL/min/1.73m2) 09/02/23 19:00 Glucose 71 mg/dL (74-106) L 09/02/23 19:00 Calcium 9.2 mg/dL (8.5-10.1) 09/02/23 19:00 Total Bilirubin 0.31 mg/dL (0.2-1.0) 09/02/23 19:00 AST 17 U/L (15-37) 09/02/23 19:00 ALT 18 U/L (14-59) 09/02/23 19:00 Alkaline Phosphatase 169 U/L (46-116) H 09/02/23 19:00 Total Protein 6.5 g/dL (6.4-8.2) 09/02/23 19:00 Albumin 2.8 g/dL (3.4-5.0) L 09/02/23 19:00 ABO/Rh A Positive 09/02/23 19:00 Antibody Screen NEGATIVE 09/02/23 19:00 Subjective Interval history since last seen: Patient seen and examined. Pitocin is at 14. Irregular uterine contractions. heart rate 150s with occasional episodes of tachycardia. These findings were discussed with the patient. Patient herself has an elevated blood pressure currently. Will recheck in 15 minutes. Increase labetalol with additional dose if necessary. At this point, continue labor induction. No significant cervical change. Will continue to monitor closely. Glycemic control is appropriate at 95. Results Hemoglobin/Hematocrit: Hgb 12.1 g/dL (11.2-15.7) 09/02/23 19:00 Hct 36.3 % (36.0-46.0) 09/02/23 19:00 Abnormal Lab Findings: Abnormal Labs 09/02/23 19:00 WBC 12.95 H Absolute Neutrophils 9.36 H Absolute Monocytes 0.97 H Carbon Dioxide 19.3 L Anion Gap 13.7 H Glucose 71 L Alkaline Phosphatase 169 H Albumin 2.8 L
[2023-09-03] MEDS: Labetalol 100 MG TAB 200 MG PO (14:34)
--- NOTE | 2023-09-03 16:49 | W.PM.OBNL1 ---
Date of service: 09/03/23 Time of Service: 16:49 Informed Consent Informed Consent: Section Delivery and Induction of Labor Contractions Monitor Mode: External Contraction Frequency(min): 3-5 Contraction Duration(sec): 60 Fetus A Monitor: External (US) Heart Rate Baseline: 150 Presentation: Cephalic Variability: Moderate (6-25 BPM) Categories: Category II Decelerations: Late and Variable Recurrence: Recurrent Assessment and Plan Assessment and plan (1) HRP (high risk ): Status: Acute Assessment and plan: Patient is a failed labor induction after receiving Cervidil for cervical ripening followed by Pitocin augmentation. No significant cervical dilation and a subtle signs of intolerance of labor with subtle late decelerations despite an adequate contraction pattern and no cervical change. In light of this, remote from delivery, with significant maternal risks including pregestational diabetes with decreasing insulin requirements currently, labile blood pressures, and advanced maternal age. Risk benefits and alternatives of delivery were explained and full informed consent was obtained. Will proceed with primary section. Occupational Health Technician will be in attendance. Or crew and anesthesia notified. All questions answered (2) Hypertension: Status: Chronic (3) Diabetes mellitus: Status: Chronic (4) Non-reassuring electronic monitoring tracing: Status: Acute Objective Abnormal lab results 09/02/23 Range/Units 19:00 WBC 12.95 H (4.4-10.8) 10^3/uL Absolute Neutrophils 9.36 H (1.2-6.7) 10^3/uL Absolute Monocytes 0.97 H (0.1-0.8) 10^3/uL Carbon Dioxide 19.3 L (21.0-32.0) mmol/L Anion Gap 13.7 H (3-11) mmol/L Glucose 71 L (74-106) mg/dL Alkaline Phosphatase 169 H (46-116) U/L Albumin 2.8 L (3.4-5.0) g/dL Temp Pulse Resp BP Pulse Ox 98.2 F 96 H 18 147/76 H 98 09/03/23 11:48 09/03/23 16:45 09/03/23 07:26 09/03/23 14:59 09/03/23 07:26 Laboratory Results WBC 12.95 10^3/uL (4.4-10.8) H 09/02/23 19:00 RBC 4.30 10^6/uL (3.93-5.22) 09/02/23 19:00 Hgb 12.1 g/dL (11.2-15.7) 09/02/23 19:00 Hct 36.3 % (36.0-46.0) 09/02/23 19:00 MCV 84 fL (80-95) 09/02/23 19:00 MCH 28.1 pg (27.0-33.0) 09/02/23 19:00 MCHC 33.3 % (32.0-36.0) 09/02/23 19:00 RDW 14.2 % (11.7-14.6) 09/02/23 19:00 Plt Count 312 10^3/uL (130-400) 09/02/23 19:00 MPV 10.8 fL (8.0-11.0) 09/02/23 19:00 Immature Gran % 0.5 % 09/02/23 19:00 Neutrophils % 72.3 % 09/02/23 19:00 Lymphocytes % 18.6 % 09/02/23 19:00 Monocytes % 7.5 % 09/02/23 19:00 Eosinophils % 0.9 % 09/02/23 19:00 Basophils % 0.2 % 09/02/23 19:00 Nucleated RBC % 0.0 % (0.0-0.3) 09/02/23 19:00 Absolute Neutrophils 9.36 10^3/uL (1.2-6.7) H 09/02/23 19:00 Absolute Lymphocytes 2.41 10^3/uL (1.2-3.4) 09/02/23 19:00 Absolute Monocytes 0.97 10^3/uL (0.1-0.8) H 09/02/23 19:00 Absolute Eosinophils 0.12 10^3/uL (0.0-0.7) 09/02/23 19:00 Absolute Basophils 0.03 10^3/uL (0.0-0.2) 09/02/23 19:00 Sodium 138 mmol/L (136-145) 09/02/23 19:00 Potassium 3.9 mmol/L (3.5-5.1) 09/02/23 19:00 Chloride 105 mmol/L (98-107) 09/02/23 19:00 Carbon Dioxide 19.3 mmol/L (21.0-32.0) L 09/02/23 19:00 Anion Gap 13.7 mmol/L (3-11) H 09/02/23 19:00 BUN 12 mg/dL (7-18) 09/02/23 19:00 Creatinine 0.6 mg/dL (0.55-1.02) 09/02/23 19:00 Est GFR (CKD-EPI 2020) 117.75 (mL/min/1.73m2) 09/02/23 19:00 Glucose 71 mg/dL (74-106) L 09/02/23 19:00 Calcium 9.2 mg/dL (8.5-10.1) 09/02/23 19:00 Total Bilirubin 0.31 mg/dL (0.2-1.0) 09/02/23 19:00 AST 17 U/L (15-37) 09/02/23 19:00 ALT 18 U/L (14-59) 09/02/23 19:00 Alkaline Phosphatase 169 U/L (46-116) H 09/02/23 19:00 Total Protein 6.5 g/dL (6.4-8.2) 09/02/23 19:00 Albumin 2.8 g/dL (3.4-5.0) L 09/02/23 19:00 ABO/Rh A Positive 09/02/23 19:00 Antibody Screen NEGATIVE 09/02/23 19:00 Subjective Interval history since last seen: Patient seen and examined and lengthy conversation with patient and her . We did decrease her Pitocin from 18-12 due to what appeared to be hyperstimulation and variable decelerations with hyperstimulation. Her Pitocin is now at 12 milliunits and with moderately palpating contractions, subtle late decelerations are noted. We had a conversation regarding tolerance of labor versus proceeding to delivery. At this point, this strip is a category 2 and remote from delivery. She is having variable decelerations though good variability. We discussed the risk, benefits, and alternatives of delivery which include, but are not limited to infection, bleeding, injury to surrounding organs, risk of anesthesia, risk of DVT, risk of pulmonary complications. Her blood pressures are also somewhat labile. Glycemic control is currently appropriate. Patient and her consent to primary delivery. Full informed consent was obtained Results Hemoglobin/Hematocrit: Hgb 12.1 g/dL (11.2-15.7) 09/02/23 19:00 Hct 36.3 % (36.0-46.0) 09/02/23 19:00 Abnormal Lab Findings: Abnormal Labs 09/02/23 19:00 WBC 12.95 H Absolute Neutrophils 9.36 H Absolute Monocytes 0.97 H Carbon Dioxide 19.3 L Anion Gap 13.7 H Glucose 71 L Alkaline Phosphatase 169 H Albumin 2.8 L
[2023-09-03] MEDS: AZITHROMYCIN 500 MG in Normal Saline 250 ML 250 MG IVPB (17:20)
[2023-09-03] MEDS: Sodium Citrate 30 ML CUP PO (17:30)
[2023-09-03] MEDS: ceFAZolin 2 GM/50 ML BAG IVPB (17:55)
[2023-09-03] MEDS: Bupivacaine 0.25% Pres-Free 30 ML VIAL (18:09)
--- NOTE | 2023-09-03 18:24 | PLAC_PTH ---
PATIENT: Isamar Peña LOC: OBS U#:[id number] AGE/SX: 38/F ROOM: OBS.303 RE09/02/[address]: Radha Trevino DO : 1985 BED: A DIS: 09/05/2023 SPEC #: [id number] RECD: 09/04/23 13:04 STATUS: KELLY REQ #: [id number] LINDSEY: 09/03/23 18:[address]: Radha Trevino DEPT: Surgical Specimen RECD BY: Deyanira Sierra ENTERED: 09/04/23 13:05 SP TYPE: PLAC OTHR DR: Amaya Turcios DO Tissues: 1 - PLACENTA (3RD TRIMESTER) Procedures: GROSS AND MICRO LEVEL 5 Comments: [id number]
--- NOTE | 2023-09-03 19:32 | W.PM.OBCSECT ---
Date of service: 09/03/23 Time of Service: 19:32 Operative Note Operative Note Delivery Method: Unscheduled STAT: No and Primary NTSV>37 Weeks: Yes DATE OF PROCEDURE: 09/10/23 PRE-OP DIAGNOSES: IUP at 37-2/7, chronic HTN diabetes, failed induction intolerance of labor PROCEDURE: Primary low-transverse section SURGEON: Radha Trevino Assisting Surgeon: Scarlet Rausch Estimated blood loss (mL): 400 Pathology: other (Placenta for exam) Patient was transported to: floor Patient's condition: stable Indications: Failed induction at 37 weeks 2 days due to chronic hypertension, diabetes, intolerance of labor Findings: Normal-appearing tubes, ovaries, uterus. Delivery of a viable female infant with Apgars 8 and 9. Procedure Description: Patient is a 38-year-old female who had labor induction at 37 weeks and 2 days by recommendation of maternal- medicine. She has chronic hypertension which blood pressures were elevating with increased antihypertensive requirements. She also had pregestational diabetes and decreasing insulin requirements. She initially had cervical ripening with Cervidil followed by Pitocin augmentation of labor. We are unable to place a Holland balloon due to position and maternal intolerance. During the course of her Pitocin augmentation, baby had subtle, late decelerations and variable decelerations that were persistent and remote from delivery. She was offered to continue her labor versus primary section. She and her opted for delivery under controlled environment. The risks benefits and alternatives have been explained to the patient in full informed consent was obtained. She was taken the operating suite with an IV running where she is placed in the seated position and spinal anesthesia administered, tested and found to be adequate. She was then placed in the dorsal supine position with leftward tilt and prepped and draped in the usual sterile fashion. She received Ancef and Zithromax for surgical site infection prophylaxis. She had pneumatic compression stockings for DVT prophylaxis. She had a vaginal preparation, and Holland catheter inserted. She was prepped and draped in the usual sterile fashion. Pfannenstiel skin incision was made and carried down to the underlying fascia. The fascia was incised in the midline and extended laterally. The rectus muscles identified and split in the midline. The peritoneum was identified tented up and entered sharply and the peritoneal incision was then extended superiorly and inferiorly. At this point the bladder blade was inserted and the vesicouterine peritoneum identified tented up and entered sharply. The bladder blade was reinserted and a low transverse uterine incision was made with a scalpel and extended bluntly laterally. There is artificial rupture of membranes for clear fluid. The vertex was delivered through the incision without difficulty, and the shoulders followed with ease. Three-vessel cord was noted clamped x 2 and cut and the infant was handed off to the waiting dot compliance specialist. Cord blood sample and cord blood gas segment were both obtained. Apgars were 8 and 9. No cord gases were sent. The placenta was manually expressed from the uterus and the uterus exteriorized and cleared of all clot and debris. The uterine incision was closed in a 2 layer closure with 0 Monocryl suture. There was 1 area at the right lateral edge that was not hemostatic which was oversewn with a single [id number] suture and hemostasis was achieved. Visualization of the fallopian tubes and ovaries was normal and the uterus was returned to the abdomen. The abdomen was then irrigated with copious amounts of normal saline and the uterine incision again reinspected and noted to be hemostatic. There were 2 areas at the fascia on the right side that were not hemostatic which was oversewn with a single stitch. At this point after hemostasis was achieved, the fascial incision was closed using 0 Vicryl suture in a running fashion. Subcutaneous tissue was irrigated with copious amounts of normal saline and the subcu space closed with 3-0 Vicryl suture in a simple interrupted fashion. The skin edge was reapproximated in a subcuticular stitch of 4-0 undyed Monocryl. Steri-Strips and a sterile dressing were placed. Patient was returned to the center with a Holland catheter draining clear yellow urine Findings: Delivery of a viable female infant with Apgars 8 and 9. Normal fallopian tubes, ovaries, uterus. Complications: None apparent EBL: 400 mL Fluids: Crystalloid per anesthesia including Pitocin. Pathology: Placenta and cord for examination. Gestational Age in Weeks/Days: 37 Weeks and 2 Days Infant Gender: Female
[2023-09-03] MEDS: diphenhydrAMINE 50 MG/ML VIAL 25 MG IVP (21:31)
[2023-09-04] VITALS (15 sets, daily range): BP systolic 106–139; BP diastolic 58–79; PULSE 71–79; RESP 17; TEMP 36.8–37.1; O2SAT 97–99
[2023-09-04] MEDS: Ketorolac 30 MG/ML VIAL IVP ×2 (02:42→09:02)
[2023-09-04] MEDS: Normal Saline Flush 10 ML SYR IVP ×2 (02:42→09:02)
[2023-09-04 06:33] LABS: Abs Immature Grans 0.07 10^3/uL (0.0-0.06); Absolute Basophil Count 0.04 10^3/uL (0.0-0.2); Absolute Eosinophil Count 0.13 10^3/uL (0.0-0.7); Absolute Lymphocyte Count 2.79 10^3/uL (1.2-3.4); Absolute Monocyte Count 1.03 10^3/uL (0.1-0.8); Absolute Neutrophil Count 9.29 10^3/uL (1.2-6.7); Basophils % 0.3 %; HCT 33.7 % (36.0-46.0); HGB 11.2 g/dL (11.2-15.7); Immature Grans % 0.5 %; Lymphocytes % 20.9 %; MCH 28.3 pg (27.0-33.0); MCHC 33.2 % (32.0-36.0); MCV 85 fL (80-95); MPV 10.6 fL (8.0-11.0); Monocytes % 7.7 %; Neutrophils % 69.6 %; Platelet Count 281 10^3/uL (130-400); RBC 3.96 10^6/uL (3.93-5.22); RDW 14.3 % (11.7-14.6); RDW-SD 44.1 fL; WBC 13.35 10^3/uL (4.4-10.8)
--- NOTE | 2023-09-04 07:32 | W.PM.OBPNV1 ---
Date of service: 09/04/23 Time of Service: 07:32 Assessment and Plan Assessment and plan (1) Status post primary low transverse section: Status: Acute Assessment and plan: Postoperative day 1 status post primary low-transverse section. Doing well. Will decrease labetalol to 200 twice daily and continue to monitor closely. Discontinue Lantus. Continue to monitor sugars with CGM. Continue Glucophage as prior to . All questions answered. Exam Physical Exam Vital signs: Temp Pulse Resp BP Pulse Ox 98.2 F 78 17 107/78 98 09/04/23 05:47 09/04/23 05:47 09/04/23 05:47 09/04/23 05:47 09/04/23 05:47 Narrative: Patient seen and examined this morning. Doing well. Pain is well-controlled. Her glycemic control is good. She did have 2 low sugars in the 50s which responded appropriately to oral intake. She was encouraged to use appropriate snacks, increase her protein. She will have no Lantus but continue her Glucophage, 1000 mg twice daily as before her Constitutional Constitutional: no acute distress HEENT Exam HEENT Exam: Normal Neck Exam Neck Exam: Normal Respiratory Exam Respiratory Exam: Normal Cardiovascular Exam Cardiovascular Exam: Normal Abdominal Exam Abdomen: Tender Fundal Exam Fundus: Below Umbilicus and Firm Extremities Exam Extremity Exam: Normal and Edema (1+ bilateral); negative Calf Tenderness Skin Exam Skin Exam: Normal Neurological Exam Neurological Exam: Normal Results Hemoglobin/Hematocrit: Hgb 11.2 g/dL (11.2-15.7) 09/04/23 06:20 Hct 33.7 % (36.0-46.0) L 09/04/23 06:20 Abnormal Lab Findings: Abnormal Labs 09/02/23 09/04/23 19:00 06:20 WBC 12.95 H 13.35 H Hct 33.7 L Absolute Neutrophils 9.36 H 9.29 H Absolute Monocytes 0.97 H 1.03 H Carbon Dioxide 19.3 L Anion Gap 13.7 H Glucose 71 L Alkaline Phosphatase 169 H Albumin 2.8 L
[2023-09-04] MEDS: Labetalol 100 MG TAB 200 MG PO ×2 (09:01→20:19)
[2023-09-04] MEDS: Docusate Sodium 100 MG CAP PO (09:01)
--- NOTE | 2023-09-04 09:14 | W.ANESPOSTOP ---
Postoperative Evaluation Date, Time and Location Date Performed: 09/04/23 Time Performed: 09:03 Patient Location: Obstetrics Vital Signs Most Recent Imported Vital Signs: Most Recent Vital Signs Temp Pulse Resp BP Pulse Ox 36.8 C 78 17 107/78 98 09/04/23 05:47 09/04/23 05:47 09/04/23 05:47 09/04/23 05:47 09/04/23 05:47 Pain Score Most Recent Pain Score: Most Recent Pain Score Pain Level 0 09/02/23 18:14 Assessment Mental Status: Awake (Alert & Oriented to Patient Baseline) Airway and Respiratory Function: Patent airway with normal (patient baseline) respiratory exam Cardiovascular Function: Hemodynamically Stable Hydration Status: Adequately Hydrated Nausea & Vomiting: No Nausea or Vomiting Pain: Pain is tolerable per patient Peripheral Nerve Block: Patient did not receive a nerve block Postoperative Comments:: Reports itching overnight, order placed for PRN Narcan.
[2023-09-04] MEDS: metFORMIN C.R. 500 MG TABCR 1000 MG PO ×2 (12:32→20:19)
[2023-09-04] MEDS: Ibuprofen 600 MG TAB PO ×2 (14:32→20:19)
[2023-09-04] MEDS: Acetaminophen 325 MG TAB 650 MG PO (17:02)
[2023-09-05] MEDS: Ibuprofen 600 MG TAB PO ×2 (02:32→08:27)
[2023-09-05 04:05] VITALS: BP 127/88; PULSE 68; RESP 17; TEMP 36.8; O2SAT 99
[2023-09-05 08:15] VITALS: BP 146/89; PULSE 84; RESP 14; TEMP 37; O2SAT 98
[2023-09-05] MEDS: Labetalol 100 MG TAB 200 MG PO (08:26)
[2023-09-05] MEDS: metFORMIN C.R. 500 MG TABCR 1000 MG PO (08:27)
--- NOTE | 2023-09-05 08:39 | DSE_ITS ---
Date of service: 09/05/23 Time of Service: 08:39 DS: Diagnosis Discharge Diagnosis (1) Status post primary low transverse section: Status: Acute Asessment and Plan: Patient admitted for induction of labor secondary to insulin requiring gestational diabetes and gestational hypertension. There was minimal labor progress and category 2 tracing with concern about intolerance of labor. She underwent a primary delivery without complications Discharge Plan Disposition Patient Disposition: Home Condition: Improving Discharge Details Reason For Visit: Pregestational Diabetes, HTN Admit Date/Time: 09/02/23 18:00 Admit Provider: Radha Trevino Attending Provider: Radha Trevino Primary Care Provider: Amaya Turcios [facility] Course Hospital Course: Patient is a 38-year-old female who had labor induction at 37 weeks and 2 days by recommendation of maternal- medicine. She has chronic hypertension which blood pressures were elevating with increased antihypertensive requirements. She also had pregestational diabetes and decreasing insulin requirements. She initially had cervical ripening with Cervidil followed by Pitocin augmentation of labor. We are unable to place a Holland balloon due to position and maternal intolerance. During the course of her Pitocin augmentation, baby had subtle, late decelerations and variable decelerations that were persistent and remote from delivery. She was offered to continue her labor versus primary section. She and her opted for delivery under controlled environment. She was discharged home on postop day #2 tolerating a regular diet passing flatus. Patient has been successfully breast-feeding. Plan is to have her follow-up in 1 week to remove Mepilex dressing. She will continue on labetalol in the period and discontinue insulin. She will follow-up with her endocrinology team at [facility] regarding gestational diabetes. Home Meds and New Rx's Prescriptions: Continued labetalol 200 mg tablet 200 mg PO BID Qty: 180 3RF Patient Comments: pt takes 400 mg bid took 400mg this morning metformin 500 mg tablet extended release 24 hr 1,000 mg PO BID Qty: 360 3RF Rx Instructions: Increase dose slowly to minimize GI symptoms. Discontinued insulin glargine 100 unit/mL cartridge 46 unit subcut QHS Patient Comments: pt taking 40 units at night No Action coenzyme Q10 200 mg capsule 200 mg PO DAILY Hold Instructions: Pt Stopped/Never Started cholecalciferol (vitamin D3) 50 mcg (2,000 unit) capsule 50 mcg PO BID Qty: 180 1RF Hold Instructions: Pt Stopped/Never Started Rx Instructions: per repro-endo aspirin 81 mg capsule 162 mg PO DAILY (DME) blood-glucose meter [OneTouch Verio Meter] Misc See Rx Instructions .ROUTE .MEDSUPPLY Qty: 1 0RF Rx Instructions: QD monitoring; to achieve A1C under 6.5% (DME) lancets [OneTouch Delica Plus Lancet] 33 gauge misc See Rx Instructions .ROUTE .MEDSUPPLY Qty: 100 3RF Rx Instructions: QD monitoring; to achieve A1C under 6.5% (DME) OneTouch Verio test strips Strip See Rx Instructions .ROUTE .MEDSUPPLY Qty: 100 3RF Rx Instructions: QID monitoring, to achieve A1C under 6.5% (DME) Dexcom G6 Sensor Device See Rx Instructions .Route Rx Instructions: As directed (DME) Dexcom G6 Quarry Plug And Feather Driller Misc See Rx Instructions .Route Rx Instructions: As directed (DME) Dexcom G6 Transmitter Device See Rx Instructions .Route Qty: 1 1RF Rx Instructions: Use as directed, for DM, E11.9, with A1C < 6.6 goal Classic 28 mg iron- 800 mcg tablet 1 tab PO DAILY Qty: 90 3RF Discharge Instructions Additional Instructions: Keep follow-up [address] Trevino for dressing removal. You have been given a prescription for Percocet 1 tablet every 6 hours of 5/325mg. You may use [id number] ibuprofen in addition to Tylenol when not taking the Percocet. Leave the dressing in place you may shower with the dressing on Activity:: Activity as Tolerated Equipment/Supplies:: No Equipment Needed Diet:: As Tolerated OB:DS Summary Summary Delivery Method: Scheduled Episiotomy Description: None Laceration Description: None Contraception Discussed Contraception Discussed: No, Gender-Baby A: Female weight: 7 lb 6.697 oz Status at Discharge Functional status at discharge: independent ambulation Overall status at discharge: patient is progressing back to baseline Mental Status: mental status grossly normal Speech and Movement: speech and movement normal Mood: congruent mood Affect: normal affect Quality:SDOH Health Related Social Needs: No Data to Display Exam Physical Exam Vital signs: Temp Pulse Resp BP Pulse Ox 98.2 F 68 17 127/88 99 09/05/23 04:05 09/05/23 04:05 09/05/23 04:05 09/05/23 04:05 09/05/23 04:05 Vital Signs Reviewed: Yes Notable Details: Patient currently taking labetalol in the postop period Constitutional Constitutional: no acute distress Respiratory Exam Respiratory Exam: Normal Cardiovascular Exam Cardiovascular Exam: Normal Abdominal Exam Comments: Incision clean dry and intact. No abdominal wall ecchymosis or erythema Fundal Exam Fundus: Below Umbilicus and Firm Rectal Exam Rectal Exam: Not Done Extremities Exam Extremity Exam: Normal Back/Spine/Pelvis Exam Back Exam: Not Done Neurological Exam Neurological Exam: Not Done Psychiatric Exam Psychiatric Exam: Normal PFSH All Active Problems (Updated 09/03/23 @ 16:55 by Radha Trevino DO) Status post primary low transverse section (Acute) 09/03/2023. Female Devi Non-reassuring electronic monitoring tracing (Acute) Sciatica (Acute) Susceptible to varicella (non-immune), currently (Acute) HRP (high risk ) (Acute) Abnormal antibody titer (Acute) No VARICELLA Titer levels per repro-endo lab findings .. no action for now! Supposedly did have chicken pox, or never ill, but seems immune (Hx [id number]) Vitamin D deficiency (Acute) ID @ repro-endo! Started on 4,000 for .. Hx of thyroid disease (Acute) Hx hypothyroid, tolerated Rx. TSH normalized and Rx D/C'd (approx 2 years). Hx of sinus tachycardia (Acute) Asymptomatic, but baseline EKG requested [ ] Hypertension (Chronic) Improving with exercise/wt loss .. expect d/c ACEi for BP WNL (OR when IUD removed) Diabetes mellitus (Chronic) Improved, A1C 6.4, 01/2022. Fam Hx DM. A1C 9.9. Metabolic syndrome (Acute) Medical History (Updated 09/03/23 @ 16:55 by Radha Trevino DO) Family history of thyroid cancer Gparent Subfertility of couple @ fertility-testing consult! May return .. Rotator cuff tear, right Healing well .. PT PRN Impingement syndrome of right shoulder Tendonitis of long head of biceps brachii of right shoulder Weight loss, intentional Unfortunately gained just pre-, but feeling well and remains active COVID-19 (~12/2021) Left leg injury left calf Hx of Terminated, mifepristone and misoprostol. Menorrhagia Hx heavy menses, anemia. Improved w/ IUD. Abnormal Pap smear of vagina and vaginal HPV (~2015) HPV (human papilloma virus) infection (~2015) Surgical History (Updated 09/03/23 @ 19:42 by Radha Trevino DO) History of colposcopy (~2015) benign History of wisdom tooth extraction (~2001) Family History Maternal Grandmother Diabetes Hypertension Hepatocellular carcinoma Maternal Grandfather Hypertension Alcohol use disorder Anaplastic thyroid carcinoma Liposarcoma of chest wall Father Hypertension Hyperlipidemia Social History Smoking/Tobacco Use Status: Never Smoking risk assessment performed?: Yes Alcohol Intake: former Drug use: Never Substance use type: does not use Adopted: No Caregiver/Support person: No Foster care: No Household members: significant other and children Housing: house Number of Children: 1 Communication Needs: None Education Level: other Details: MD Do you need help understanding health information?: Never current occupation: Directory Assistance Operator Pets and animals: Yes (1,1) Pets and animals: cat(s) and other Details: rabbit Sexually active: Yes Do you think of yourself as: straight/heterosexual Current gender identity: female What is your relationship status?: living with partner How often do you talk on the phone with friends or family?: three or more times per week How often do you get together with friends or relatives?: once per week Do you belong to any clubs or organized social groups?: yes Panel score (0-1 are the most socially isolated patients): 3 What type of physical activity do you participate in: walking and other Details: hiking, [place] Duration: 15-30 minutes/day Frequency: 3-4 times per week Juana/Confucianist: None Special juana needs: No Seatbelt use: always Helmet use: Yes Helmet use: always Drive intox or ride w/intox services delivery driver: No Do you feel safe at home: Yes Do you feel safe in your relationship?: Yes History History 2 Para 0 Hx # Term Pregnancies 0 Multiple births 0 Hx # Pregnancies 0 Ectopic pregnancies 0 AB induced 1 Hx Number of Living Children 0 AB spontaneous 0 Past Pregnancies Del. Date GA/Weeks # Preg Succ Route Wgt Sex Labor Lgth Anesth esia Location Prov Complic 02/14/16 5 09/03/23 37 No Yes Female KJ/aoc Delivery Date: 02/14/16 Last Updated by: Isabel Danielle CNM ETOP without complications Delivery Date: 09/03/23 Last Updated by: Scarlet Rausch MD IOL for GDM, insulin requiring and GDM. Devi DS: Data Vitals/I&O Vitals and I&O: Vital Signs Temperature 98.2 F 09/05/23 04:05 Temperature Source Oral 09/05/23 04:05 Pulse 68 09/05/23 04:05 Pulse Rhythm Regular 09/04/23 20:29 Respiratory Rate 17 09/05/23 04:05 Respiratory Depth Normal 09/04/23 20:29 Blood Pressure 127/88 09/05/23 04:05 Blood Pressure Mean 101 09/05/23 04:05 Pulse Oximetry 99 09/05/23 04:05 Oxygen Delivery Method Room Air 09/02/23 18:14 Oxygen Flow Rate 0 09/02/23 18:14 Pain Level 5 09/05/23 08:27 Comment RN and MD at bedside, MD wants to recheck BP in 15 minutes 09/03/23 13:58 Intake & Output 09/04/23 09/04/23 09/05/23 11:59 23:59 11:59 Intake Total 850 / 850 Output Total 950 / 1950 1000 / 1950 500 / 500 Balance -100 / -1100 -1000 / -1100 -500 / -500 Intake: IV 850 / 850 Output: Urine 950 / 1950 1000 / 1950 500 / 500 Other: Urine Color Light Nora Yellow Urine Appearance Clear Comment encouraged pt to drink more fluids
== END 2023-09-05 11:10 | disposition home or self-care (01) | DRG 787 ==
PROVIDERS: Admitting Provider Obstetrics & Gynecology; PCP Student in an Organized Health Care Education/Training Program; Visit Provider Obstetrics & Gynecology
PROC: 10D00Z1 Extraction of Products of Conception, Low, Open Approach (ICD-10-PCS; CPT 59514; principal; 2023-09-03 17:05)
DX: O24.12 Pre-existing type 2 diabetes mellitus, in childbirth (principal); O10.02 Pre-existing essential hypertension complicating childbirth; Z28.39 Other underimmunization status; Z37.0 Single live birth; Z3A.36 36 weeks gestation of pregnancy; O61.0 Failed medical induction of labor; O76 Abnormality in fetal heart rate and rhythm complicating labor and delivery; Z79.4 Long term (current) use of insulin
CPT/HCPCS: 59514; 36415; 80053; 85027; 86850; 86900; 86901; 59200; 85025; 88307; J0456; J0665; J0690; J1200; J1815; J1885; J2274; J2371; J2405; J3010

== ENCOUNTER 2023-11-19 03:35 | Outpatient (CLI) | payer OTHER, SELFPAY ==
[2023-11-19 13:09] LABS: HGB 13.4 g/dL (11.2-15.7)
[2023-11-19 13:17] LABS: Hemoglobin A1C 6.5 % (<5.7)
[2023-11-19 14:03] LABS: Iron 64 ug/dL (50-170); Total Iron Binding Capacity 338 ug/dL (250-450); Transferrin Sat 19 % (15-50)
[2023-11-19 14:14] LABS: Anion Gap 9.7 mmol/L (3-11); BUN 12 mg/dL (7-18); CO2 26.3 mmol/L (21.0-32.0); CREATININE 0.8 mg/dL (0.55-1.02); Calcium 9.2 mg/dL (8.5-10.1); Calculated LDL 80 mg/dL (<100); Chloride 103 mmol/L (98-107); Cholesterol 170 mg/dL (<200); Estimated GFR 96.66 (mL/min/1.73m2); Glucose 122 mg/dL (74-106); HDL Cholesterol 32 mg/dL (40-60); Potassium 3.9 mmol/L (3.5-5.1); Sodium 139 mmol/L (136-145); TSH (W/Ref FT4) 1.39 uIU/mL (0.36-3.74); Triglyceride 290 mg/dL (<150); Vitamin D 25 Total 45.9 ng/mL (30-100)
[2023-11-24 17:26] LABS: Apolipoprotein B, Serum 96 mg/dL (48-124); Beta VLDL Cholesterol Not Detected mg/dL (<15); Beta VLDL Triglycerides Not Detected mg/dL (<15); Cholesterol, Total, CDC 174 mg/dL; Chylomicron Cholesterol 6 mg/dL; Chylomicron Triglycerides 116 mg/dL; HDL Cholesterol, CDC 27 mg/dL (>=50); LDL Cholesterol 103 mg/dL; LDL Triglycerides 56 mg/dL (<=50); Lp(a) Cholesterol <5 mg/dL (<5); LpX Not detected; Triglycerides, CDC 305 mg/dL; VLDL Cholesterol 38 mg/dL (<30); VLDL Triglycerides 108 mg/dL (<120)
== END 2023-11-19 03:36 | disposition home or self-care (01) ==
LOC: LBO 03:35
PROVIDERS: PCP Student in an Organized Health Care Education/Training Program; Visit Provider Student in an Organized Health Care Education/Training Program
DX: I10 Essential (primary) hypertension (principal); R73.03 Prediabetes; Z86.39 Personal history of other endocrine, nutritional and metabolic disease; E55.9 Vitamin D deficiency, unspecified; E11.9 Type 2 diabetes mellitus without complications; K90.9 Intestinal malabsorption, unspecified; Z13.220 Encounter for screening for lipoid disorders; R73.09 Other abnormal glucose; T81.9XXA Unspecified complication of procedure, initial encounter; D64.9 Anemia, unspecified; N92.0 Excessive and frequent menstruation with regular cycle
CPT/HCPCS: 36415; 80048; 80061; 82306; 82172; 82664; 83036; 83540; 83550; 84443; 85018